=== PATIENT | female | born 1935 | race Caucasian/White ===

== ENCOUNTER 2018-10-15 13:48 | Observation (INO) ==
[2018-10-15 15:00] LABS: Basophils % 0.3 %; Eosinophils % 0.2 %; Hematocrit 37.2 % (35.3-44.9); Hemoglobin 12.1 g/dL (11.5-15.4); Lymphocytes # 0.8 K/mcL (0.6-4.6); Lymphocytes % 6.4 %; Mean Corpuscular HGB Conc 32.5 g/dL (31.6-35.5); Mean Corpuscular Hemoglobin 28.3 pg (28.0-33.3); Mean Corpuscular Volume 87.1 fL (83.0-100.0); Mean Platelet Volume 9.9 fL (9.4-12.4); Monocytes # 0.8 K/mcL (0.0-1.3); Monocytes % 6.7 %; Neutrophils # 10.3 K/mcL (1.6-8.9); Platelet Count 351 K/mcL (140-400); Red Blood Count 4.27 M/mcL (3.82-4.97); Red Cell Distribution Width 14.8 % (11.5-14.5); Segmented Neutrophils % 85.4 %; White Blood Count 12.1 K/mcL (4.3-11.1)
[2018-10-15 15:08] LABS: Prothrombin Time 23.1 Seconds (9.4-12.1)
[2018-10-15 15:10] LABS: Activated Partial Thrombo Time 39.4 Seconds (26.0-36.0)
[2018-10-15 15:21] LABS: Calcium 9.1 mg/dL (8.6-10.3); Potassium 4.4 mEq/L (3.5-5.1); Troponin I 0.03 ng/mL (< 0.04)
[2018-10-15] MEDS ORDERED: 0.9 % Sodium Chloride 1,000 ML IVC ONE (15:43)
--- NOTE | 2018-10-15 16:03 | Emergency Department Note ---
Disposition Clinical Impression: Acute kidney injury Atrial fibrillation Qualifiers: Atrial fibrillation type: paroxysmal Qualified Code(s): I48.0 - Paroxysmal atrial fibrillation Fatigue Qualifiers: Fatigue type: unspecified Qualified Code(s): R53.83 - Other fatigue Disposition: Admitted As Inpatient Condition: Fair Time of Disposition: 17:06 General Adult HPI - General Chief complaint: ED General Medical Stated complaint: afib Time Seen by Provider: 10/15/18 15:26 Source: patient Mode of arrival: ambulatory Limitations: no limitations Nursing Notes Reviewed: Yes Vital Signs Reviewed: Yes - History of Present Illness HPI Narrative: 83 yo female with past medical history of intermittent A. fib who recently underwent whatever for replacement of her aortic valve at [place] presents emergency department from her primary care doctor for recurrence of her atrial fibrillation. Patient has been hospitalized twice since discharge from the procedure last week for atrial fibrillation and is now taking metoprolol, Cardizem, and amiodarone with palpation. This morning she began feeling fatigued and went to her primary care physician's office who noticed that she had gone into atrial fibrillation again and was referred to the emergency room. She states that her installment loan collector, Dr. Stevenson, has talked about electrical card ioversion if she continues to go in and out of atrial fibrillation. Patient states that she feels lightheaded as though she is going to pass out when she goes into atrial fibrillation. She denies chest pain, palpitations, nausea and vomiting, diarrhea, dysuria. Pain Scale: 0 - Related Data Home Medications Medication Instructions Recorded Confirmed Alendronate Sodium [Fosamax] 70 mg PO TU 09/11/15 10/15/18 Aspirin Enteric Coated [Aspirin EC] 81 mg PO DAILY 09/11/15 10/15/18 Amiloride HCl 5 mg PO DAILY 07/06/18 10/15/18 Calcium Carb, Citrate/Vit D3 1 each PO DAILY 07/06/18 10/15/18 [Calcium + D3 ER Tablet] Amiodarone [Cordarone] 200 mg PO BID 10/15/18 10/15/18 Apixaban [Eliquis] 5 mg PO BID 10/15/18 10/15/18 Diltiazem HCl [Cardizem LA] 120 mg PO DAILY 10/15/18 10/15/18 Previous Rx's Medication Instructions Recorded Metoprolol XL (24 HR) Succ [Toprol 50 mg PO DAILY #30 tab.er.24h 10/16/18 Xl] Allergies Allergy/AdvReac Type Severity Reaction Status Date / Time No Known Allergies Allergy Verified 10/15/18 23:22 All systems ED: reviewed and negative except as stated. Review of Systems: As Per HPI Constitutional: Reports: weakness. Denies: fever, chills Eyes: Denies: vision change Cardiovascular: Reports: dyspnea on exertion. Denies: chest pain, palpitations, edema Respiratory: Reports: cough, dyspnea. Denies: wheezes Gastrointestinal: Denies: abdominal pain, nausea, vomiting, diarrhea Genitourinary: Denies: dysuria, hematuria Musculoskeletal: Denies: back pain Integumentary: Denies: rash Neurological: Denies: headache Endocrine: Reports: fatigue Past Medical History - Past Medical History Attestation: Yes The following information was validated with the patient. Source: patient Medical history: Reports: cancer, hypertension, other Surgical history: Reports: hip replacement Psychiatric history: Reports: no psych history - Social History Smoking Status: Former smoker Smokeless Tobacco Status: No Alcohol use: Reports: occasionally Drug use: Reports: none Physical Exam - General Limitations: no limitations General appearance: alert, in no apparent distress - Head Head exam: atraumatic, normocephalic - Eye Eye exam: Present: normal appearance, EOMI - ENT ENT exam: normal exam, normal oropharynx - Neck Neck exam: Present: normal inspection. Absent: tenderness, lymphadenopathy - Chest Chest inspection: Present: normal inspection. Absent: tenderness, rash - Respiratory Respiratory exam: Present: normal lung sounds bilaterally. Absent: wheezes - Cardiovascular Cardiovascular exam: Present: regular rate, irregular rhythm - Abdominal Exam Abdominal exam: Present: soft, Non-Tender. Absent: distention, guarding, rebound, rigidity - Extremities Exam Extremities exam: Present: normal inspection. Absent: tenderness, pedal edema - Neurological Exam Neurological exam: Present: alert, oriented X3 - Psychiatric Psychiatric exam: Present: normal affect, normal mood - Skin Skin exam: Present: warm, dry, intact Course Vital Signs Temperature 97.5 F L 10/15/18 13:51 Pulse Rate 86 10/15/18 13:51 Respiratory Rate 18 10/15/18 13:51 Blood Pressure 144/76 10/15/18 13:51 O2 Sat by Pulse Oximetry 97 10/15/18 13:51 Temperature 97.5 F L 10/15/18 16:30 Pulse Rate 73 10/15/18 16:51 Respiratory Rate 18 10/15/18 16:51 Blood Pressure 151/80 10/15/18 16:51 O2 Sat by Pulse Oximetry 98 10/15/18 16:51 Oxygen Delivery Oxygen Delivery Room Air Medical Decision Making - MDM Narrative Medical decision making narrative: Patient presents with complaint of recurrence of her atrial fibrillation. Basic lab work and EKG done from triage show atrial fibrillation with RVR and mild dehydration. Chest x-ray is still pending. Patient will be given 1 L normal saline bolus as her last echocardiogram done in May shows an ejection fraction of 60% as well as a Cardizem bolus. We will consult with cardiology to determine further plan. 1600 - spoke with Dr. Coronado who states that this patient should be admitted to [facility] hospitalist team and cardiology will further evaluate her to see if she needs rate control or rhythm control to help with her symptomatically atrial fibrillation. 1700 - pt has been accepted to the hospital. She is now normal sinus rhythm without the administration of the Cardizem. - Medical Records Medical records reviewed: Yes I reviewed the patient's medical records. - Lab Data Lab results reviewed: Yes I reviewed the patient's lab results. Result diagrams: 10/16/18 02:29 10/16/18 02:29 Lab Results 10/15/18 10/15/18 10/15/18 Range/Units 14:41 14:41 14:41 WBC 12.1 H (4.3-11.1) K/mcL RBC 4.27 (3.82-4.97) M/mcL Hgb 12.1 (11.5-15.4) g/dL Hct 37.2 (35.3-44.9) % MCV 87.1 (83.0-100.0) fL MCH 28.3 (28.0-33.3) pg MCHC 32.5 (31.6-35.5) g/dL RDW 14.8 H (11.5-14.5) % Plt Count 351 (140-400) K/mcL MPV 9.9 (9.4-12.4) fL Immature Gran % 1.0 (0-4) % Seg Neutrophils % 85.4 % Lymphocytes % 6.4 % Monocytes % 6.7 % Eosinophils % 0.2 % Basophils % 0.3 % Neutrophils # 10.3 H (1.6-8.9) K/mcL Lymphocytes # 0.8 (0.6-4.6) K/mcL Monocytes # 0.8 (0.0-1.3) K/mcL Eosinophils # 0.0 (0.0-0.6) K/mcL Basophils # 0.0 (0.0-0.2) K/mcL PT 23.1 H (9.4-12.1) Seconds INR 2.0 APTT 39.4 H (26.0-36.0) Seconds Sodium 135 L (136-145) mEq/L Potassium 4.4 (3.5-5.1) mEq/L Chloride 99 (98-107) mEq/L Carbon Dioxide 25 (23-29) mEq/L BUN 30 H (8-23) mg/dL Creatinine 1.24 H (0.60-1.20) mg/dL Est GFR ( Amer) 50 L (> 60) Est GFR (Non-Af Amer) 41 L (> 60) BUN/Creatinine Ratio 24 (6-26) Glucose 136 H (70-105) mg/dL Calculated Osmolality 288 (280-300) Calcium 9.1 (8.6-10.3) mg/dL Troponin I 0.03 (< 0.04) ng/mL - Radiology Data Radiology results reviewed: Yes I reviewed the patient's radiology results. - EKG Data EKG #1 EKG attestation: Yes I reviewed and interpreted this EKG. EKG results narrative: EKG obtained at 16:47 on 10/15/2018 Normal sinus rhythm at [address] segment elevations or depressions. No other T-wave abnormalities. EKG #2 EKG attestation: Yes I reviewed and interpreted this EKG. EKG results narrative: EKG obtained at 16:47 on 10/15/2018 Normal sinus rhythm at [address] segment elevations or depressions. No other T-wave abnormalities. Attestation Statement - Attestation Attestation: I have seen this patient with the resident physician, I have personally evaluated this patient. I had reviewed the chart and document dictation by the resident physician and aM in agreement with the information documented by the resident physician. Please see documentation by the resident physician for complete chart including past medical history, family medical history, review of systems, current history and physical and laboratory and imaging studies. I was present for all procedures, provided direct supervision for all procedures, was present for the entirety of all procedures and provided direct guidance during the procedures. Please see documentation by the resident physician for any procedures performed. I have reviewed all interpretations of EKGs, and reviewed all EKGs performed on patient's as well. I have also reviewed reports of imaging as provided by radiology.
--- NOTE | 2018-10-15 16:20 | Emergency Department Note ---
Disposition Clinical Impression: Atrial fibrillation, Fatigue Disposition: Still a Patient Condition: Fair Referrals: Linh Diaz MD [Primary Care Provider] - Forms: ED Satisfaction Letter, Work/School Release Time of Disposition: 16:24 General Adult HPI - General Chief complaint: ED General Medical Stated complaint: afib Time Seen by Provider: 10/15/18 15:26 Source: patient Mode of arrival: ambulatory Limitations: no limitations Nursing Notes Reviewed: Yes Vital Signs Reviewed: Yes - History of Present Illness Pain Scale: 0 - Related Data Home Medications Medication Instructions Recorded Confirmed Alendronate Sodium [Fosamax] 70 mg PO QMONTH 09/11/15 07/06/18 Aspirin Enteric Coated [Aspirin EC] 81 mg PO DAILY 09/11/15 07/06/18 Biotin 10 mg PO DAILY 09/11/15 07/06/18 Amiloride HCl 5 mg PO DAILY 07/06/18 07/06/18 Calcium Carb, Citrate/Vit D3 1 each PO DAILY 07/06/18 07/06/18 [Calcium + D3 ER Tablet] hydroCHLOROthiazide 50 mg PO DAILY 07/06/18 07/06/18 [Hydrochlorothiazide] Allergies Allergy/AdvReac Type Severity Reaction Status Date / Time No Known Allergies Allergy Verified 10/15/18 13:50 Constitutional: Reports: weakness. Denies: fever, chills Eyes: Denies: vision change Cardiovascular: Reports: dyspnea on exertion. Denies: chest pain, palpitations, edema Respiratory: Reports: cough, dyspnea. Denies: wheezes Gastrointestinal: Denies: abdominal pain, nausea, vomiting, diarrhea Genitourinary: Denies: dysuria, hematuria Musculoskeletal: Denies: back pain Integumentary: Denies: rash Neurological: Denies: headache Endocrine: Reports: fatigue Past Medical History - Past Medical History Medical history: Reports: cancer, hypertension, other Surgical history: Reports: hip replacement Psychiatric history: Reports: no psych history - Social History Smoking Status: Former smoker Smokeless Tobacco Status: No Alcohol use: Reports: occasionally Drug use: Reports: none Physical Exam - General Limitations: no limitations General appearance: alert, in no apparent distress Course Vital Signs Temperature 97.5 F L 10/15/18 13:51 Pulse Rate 86 10/15/18 13:51 Respiratory Rate 18 10/15/18 13:51 Blood Pressure 144/76 10/15/18 13:51 O2 Sat by Pulse Oximetry 97 10/15/18 13:51 Temperature 97.5 F L 10/15/18 13:51 Pulse Rate 86 10/15/18 13:51 Respiratory Rate 18 10/15/18 13:51 Blood Pressure 144/76 10/15/18 13:51 O2 Sat by Pulse Oximetry 97 10/15/18 13:51 Oxygen Delivery Oxygen Delivery Room Air Medical Decision Making - Lab Data Result diagrams: 10/15/18 14:41 10/15/18 14:41 Lab Results 10/15/18 10/15/18 10/15/18 Range/Units 14:41 14:41 14:41 WBC 12.1 H (4.3-11.1) K/mcL RBC 4.27 (3.82-4.97) M/mcL Hgb 12.1 (11.5-15.4) g/dL Hct 37.2 (35.3-44.9) % MCV 87.1 (83.0-100.0) fL MCH 28.3 (28.0-33.3) pg MCHC 32.5 (31.6-35.5) g/dL RDW 14.8 H (11.5-14.5) % Plt Count 351 (140-400) K/mcL MPV 9.9 (9.4-12.4) fL Immature Gran % 1.0 (0-4) % Seg Neutrophils % 85.4 % Lymphocytes % 6.4 % Monocytes % 6.7 % Eosinophils % 0.2 % Basophils % 0.3 % Neutrophils # 10.3 H (1.6-8.9) K/mcL Lymphocytes # 0.8 (0.6-4.6) K/mcL Monocytes # 0.8 (0.0-1.3) K/mcL Eosinophils # 0.0 (0.0-0.6) K/mcL Basophils # 0.0 (0.0-0.2) K/mcL PT 23.1 H (9.4-12.1) Seconds INR 2.0 APTT 39.4 H (26.0-36.0) Seconds Sodium 135 L (136-145) mEq/L Potassium 4.4 (3.5-5.1) mEq/L Chloride 99 (98-107) mEq/L Carbon Dioxide 25 (23-29) mEq/L BUN 30 H (8-23) mg/dL Creatinine 1.24 H (0.60-1.20) mg/dL Est GFR ( Amer) 50 L (> 60) Est GFR (Non-Af Amer) 41 L (> 60) BUN/Creatinine Ratio 24 (6-26) Glucose 136 H (70-105) mg/dL Calculated Osmolality 288 (280-300) Calcium 9.1 (8.6-10.3) mg/dL Troponin I 0.03 (< 0.04) ng/mL Attestation Statement - Attestation Attestation: I have seen this patient with the resident physician, I have personally evaluated this patient. I had reviewed the chart and document dictation by the resident physician and aM in agreement with the information documented by the resident physician. Please see documentation by the resident physician for complete chart including past medical history, family medical history, review of systems, current history and physical and laboratory and imaging studies. I was present for all procedures, provided direct supervision for all procedures, was present for the entirety of all procedures and provided direct guidance during the procedures. Please see documentation by the resident physician for any procedures performed. I have reviewed all interpretations of EKGs, and reviewed all EKGs performed on patient's as well. I have also reviewed reports of imaging as provided by radiology. Patient was sent in by her primary care and her skip load driver for management of atrial fibrillation. She has had problems with atrial fibrillation, and has been in and out of the hospital ever since having her aortic valve replaced, she is currently on Eliquis, she is unsure if she has a artificial valve or a tissue valve. she states that she did have some complications after her initial procedure, she developed a pericardial effusion related to a injured vessel, and required pericardiocentesis. She does not feel short of breath but does have this exertional fatigue and lack of energy. They have tried her on several different medications including a beta jacob, diltiazem, and amiodarone, she is currently on diltiazem and amiodarone for A. fib, she has been chemically cardioverted twice, but not required electrical cardioversion. We contacted her skip load driver who referred her to the ER, who would like her to be admitted to medicine, for likely cardioversion. Basic laboratory studies revealed mildly increased creatinine of 1.24 up from 0.8, she was given a liter of IV fluids, she did have an echocardiogram within the last couple of months that showed a normal ejection fraction of 50-60% she also had a cardiac catheterization performed 4 months ago that showed 30% vascular stenosis in one vessel all other vessels were within acceptable limits, including aortic runoff. Patient laboratory studies revealed no evidence of acute myocardial infarction, no other acute abnormality. If the patient's heart rate increases we will consider diltiazem, her heart rate on her EKG was 103, however my examination was in the 70s, EKG was atrial fibrillation, again heart rate of 103, no evidence of acute ST elevation or ST depression or significant T-wave inversion, nonspecific T-wave flattening and biphasic appearance laterally, without significant acute change from prior. Patient was admitted to the hospital for further evaluation and management. Chest x-ray as interpreted by radiology showed cardiomegaly, small pleural effusion, slightly improved from previous.
[2018-10-15] MEDS ORDERED: Naloxone 0.4 MG/ML INJ IVP PRN (17:08)
[2018-10-15] MEDS ORDERED: Ondansetron 4 MG/2 ML VIAL IVP PRN (17:08)
[2018-10-15] MEDS ORDERED: Ringers Solution, Lactated 1,000 ML IVC SCH (17:15)
--- NOTE | 2018-10-15 17:31 | Internal Med History&Physical ---
Date of Encounter: 10/15/18 Time of Encounter: 17:10 Internal Medicine - H&P: HPI Chief complaint: afib Admitted From: Home History of present illness: Ms. Hutchinson is a 83 year old female with history of recent TAVR on 10/02, new onset afib on Apixaban, HTN, ex-tobacco use, who presented from the PCP office due to recurrence of atrial fibrillation. Patient states that she went to her PCP office for routine visit when her doctor found out that she was hypotensive and was in atrial fibrillation with RVR hence sent the pt to the ED for further ev aluation. Other than feeling fatigued for the last 2 days, patient denies any chest pain, palpitation, orthopnea, PND, or leg swelling. No shortness of breath, cough, sputum production, fever/chills, nausea/vomiting, or sick contacts. Denies any GI/ symptoms. Does admit to poor oral intake due to feeling tired for the last 2 days. In the ED, she was afebrile, tachycardic at 103, but otherwise hemodynamically stable. Saturating 97% on room air. EKG showed atrial fibrillation with ventricular rate of 103 without STT changes concerning for ischemia. Labwork showed leukocytosis of 12.1, INR of 2, and creatinine of 1.24 (baseline 0.8-9). Troponin was normal. Chest x-ray did not show any acute cardiopulmonary process. She was given 1 L of IV fluid as a bolus and was about to be given 20 mg of Cardizem but spontaneously converted to NSR while IVF was running. Patient will be admitted for further management with cardiology consultation. Past Med Surg Social Fam HX - Past Medical History Medical history: atrial fibrillation, cancer, hypertension, other Additional medical history: skin CA, s/p TAVR 10/02/18 Psychiatric history: no psych history - Past Surgical History Surgical History: hip replacement Additional surgical history: VEIN STRIPPING. MOHS. COLONOSCOPY. HEMORRHOIDECTOMY X2. SKIN LESION REMOVAL - Social History Smoking Status: Former smoker Smokeless Tobacco Status: No Alcohol use: occasionally Drug use: none - Additional Family History Additional family history: No Family history of premature CAD Internal Medicine - H&P: Meds Alendronate Sodium [Fosamax] 70 mg PO QMONTH 09/11/15 [History] Aspirin Enteric Coated [Aspirin EC] 81 mg PO DAILY 09/11/15 [History] Biotin 10 mg PO DAILY 09/11/15 [History] Amiloride HCl 5 mg PO DAILY 07/06/18 [History] Calcium Carb, Citrate/Vit D3 [Calcium + D3 ER Tablet] 1 each PO DAILY 07/06/18 [History] hydroCHLOROthiazide [Hydrochlorothiazide] 50 mg PO DAILY 07/06/18 [History] Allergy/AdvReac Type Severity Reaction Status Date / Time No Known Allergies Allergy Verified 10/15/18 13:50 All Systems PM: A 10-system review of systems was performed and is negative for pertinent find ings except as documented above in the HPI. - Constitutional Vitals: Temp Pulse Resp BP Pulse Ox 97.5 F L 73 18 151/80 98 10/15/18 16:30 10/15/18 16:51 10/15/18 16:51 10/15/18 16:51 10/15/18 16:51 Exam: General: Alert and oriented, not in acute distress. HEENT:EOMI, pupils equal, round and reactive. Cardiovascular:Normal S1 & S2, No JVD. Pulse regular. Lungs: clear to auscultation, no wheezes/rales Abdomen:Soft, non-tender, no rigidity. Extremities:No deformity or swelling Neurological:Normal cognition and motor skills. Non-focal Skin:Normal color, no rash, no lesions. Pulses:Carotid and radial pulses normal +2. Rest of the physical exam is non contributory Internal Med - H&P Results - Labs CBC & Chem 7: 10/15/18 14:41 10/15/18 14:41 Labs: Short CBC 10/15/18 Range/Units 14:41 WBC 12.1 H (4.3-11.1) K/mcL Hgb 12.1 (11.5-15.4) g/dL Hct 37.2 (35.3-44.9) % Plt Count 351 (140-400) K/mcL Neutrophils # 10.3 H (1.6-8.9) K/mcL BMP 10/15/18 14:41 Sodium 135 L Potassium 4.4 Chloride 99 Carbon Dioxide 25 BUN 30 H Creatinine 1.24 H Glucose 136 H Calcium 9.1 Cardiac Enzymes 10/15/18 Range/Units 14:41 Troponin I 0.03 (< 0.04) ng/mL - Impressions ITS Impressions Chest X-Ray 10/15/18 14:06 IMPRESSION: Cardiomegaly and small pleural effusions bilaterally. Hyperinflation compatible with COPD. D/ / Hussein Hooper MD / Hussein Hooper MD Interpreting Provider: Hussein Hooper MD - Assessment and Plan (1) Atrial fibrillation Current Visit: Yes Status: Acute Assessment and plan: presented from the PCP office due to concern for hypotension and afib with RVR upon arrival to the ED, her HR was 103, in atrial fibrillation, but quickly converted to NSR on IVF appears to be triggered by hypovolemia given her mild MARIA ESTHER. Aggravated by HCTZ/amiloride use 1st troponin -ve, trend Resume home meds including amiodarone, Cardizem, and Toprol XL AC with apixaban cardiology consulted in the ED Qualifiers: Atrial fibrillation type: paroxysmal Qualified Code(s): I48.0 - Paroxysmal atrial fibrillation (2) Acute kidney injury Current Visit: Yes Status: Acute Assessment and plan: appears to be aggravated by ongoing use of HCTZ and amiloride IVF, hold off on HCTZ/amiloride for now (3) HTN (hypertension) Current Visit: Yes Status: Chronic Assessment and plan: hold off on HCTZ/amiloride as above Qualifiers: Hypertension type: unspecified Qualified Code(s): I10 - Essential (primary) hypertension (4) Tobacco abuse Current Visit: Yes Status: Chronic Assessment and plan: Chest x-ray showed hyperinflation which could be consistent with COPD outpatient PFT PRN duoneb (5) DVT prophylaxis Current Visit: Yes Status: Acute Assessment and plan: on apixaban - Time Spent With Patient Total time spent is greater than 50% in coordination of care (as documented) at patient's floor/unit and/or counseling patient: 25 - 35 minutes
[2018-10-15] MEDS ORDERED: Ipratropium/Albuterol Neb 3 ML IH PRN (17:37)
[2018-10-15] MEDS: Apixaban 5 MG TABLET PO SCH (20:57)
[2018-10-15] MEDS: *HR* Amiodarone 200 MG TABLET PO SCH (20:57)
[2018-10-16 02:57] LABS: Basophils % 0.5 %; Eosinophils # 0.1 K/mcL (0.0-0.6); Eosinophils % 1.2 %; Hematocrit 32.1 % (35.3-44.9); Immature Granulocytes % 1.2 % (0-4); Lymphocytes # 0.9 K/mcL (0.6-4.6); Lymphocytes % 11.9 %; Mean Corpuscular HGB Conc 32.7 g/dL (31.6-35.5); Mean Corpuscular Hemoglobin 28.4 pg (28.0-33.3); Mean Corpuscular Volume 86.8 fL (83.0-100.0); Mean Platelet Volume 9.9 fL (9.4-12.4); Monocytes # 0.9 K/mcL (0.0-1.3); Monocytes % 11.3 %; Neutrophils # 5.5 K/mcL (1.6-8.9); Platelet Count 217 K/mcL (140-400); Red Cell Distribution Width 14.7 % (11.5-14.5); Segmented Neutrophils % 73.9 %; White Blood Count 7.5 K/mcL (4.3-11.1)
[2018-10-16 02:58] LABS: Hemoglobin 10.5 g/dL (11.5-15.4)
[2018-10-16 03:14] LABS: BUN/Creatinine Ratio 26 (6-26); Blood Urea Nitrogen 26 mg/dL (8-23); Calcium 8.3 mg/dL (8.6-10.3); Carbon Dioxide 26 mEq/L (23-29); Chloride 103 mEq/L (98-107); Glucose 105 mg/dL (70-105); Osmolality,Calculated 287 (280-300); Potassium 3.7 mEq/L (3.5-5.1); Sodium 136 mEq/L (136-145); eGFR For African Americans > 60 (> 60); eGFR For Non-African Americans 52 (> 60)
[2018-10-16 07:09] VITALS: BP 149/82
[2018-10-16] MEDS ORDERED: Diltiazem CD (24hr) 120 MG CAPSULE PO SCH (09:00)
[2018-10-16] MEDS ORDERED: Metoprolol XL (24 HR) Succ 25 MG TAB.ER.24H PO SCH (09:00)
[2018-10-16] MEDS ORDERED: Aspirin Enteric Coated 81 MG Tablet PO SCH (09:00)
[2018-10-16] MEDS ORDERED: Metoprolol XL (24 HR) Succ 50 MG TAB.ER.24H PO SCH (09:00)
[2018-10-16] MEDS: Apixaban 5 MG TABLET PO SCH (09:42)
[2018-10-16] MEDS: *HR* Amiodarone 200 MG TABLET PO SCH (09:42)
--- NOTE | 2018-10-16 09:43 | Discharge Summary ---
- NOTES TO OUTPATIENT PROVIDER Notes to Outpatient Provider: Follow up with PCP and Cardiology as outpatient. HCTZ d/jammie and Toprol uptitrated to 50mg QD Date of Encounter: 10/16/18 Time of Encounter: 08:30 - Discharge Diagnosis (1) Atrial fibrillation Priority: Primary Status: Acute Qualifiers: Atrial fibrillation type: paroxysmal Qualified Code(s): I48.0 - Paroxysmal atrial fibrillation (2) Acute kidney injury Priority: Secondary Status: Acute (3) HTN (hypertension) Priority: Secondary Status: Chronic Qualifiers: Hypertension type: unspecified Qualified Code(s): I10 - Essential (primary) hypertension (4) Tobacco abuse Priority: Secondary Status: Chronic (5) DVT prophylaxis Priority: Secondary Status: Acute Hospital course: Ms. 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 Converted to NSR in the ED after IVF. Cr was elevated at 1.24 (baseline 0.8-0.9) which downtrending with IVF. HCTZ was d/jammie and Toprol XL was uptitrated to 50mg QD. She will need to follow up with PCP and Cardiology as outpatient. 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 consultant - Time Spent with Patient Total time spent providing and/or coordinating discharge services: 28 mins - Discharge Medications Prescriptions: New Metoprolol XL (24 HR) Succ [Toprol Xl] 50 mg PO DAILY #30 tab.er.24h Continued Aspirin Enteric Coated [Aspirin EC] 81 mg PO DAILY Alendronate Sodium [Fosamax] 70 mg PO TU Amiloride HCl 5 mg PO DAILY Calcium Carb, Citrate/Vit D3 [Calcium + D3 ER Tablet] 1 each PO DAILY Amiodarone [Cordarone] 200 mg PO BID Diltiazem HCl [Cardizem LA] 120 mg PO DAILY Apixaban [Eliquis] 5 mg PO BID Discontinued Metoprolol Succinate [Toprol Xl] 25 mg PO DAILY Home Medications: Alendronate Sodium [Fosamax] 70 mg PO TU 09/11/15 [History] Aspirin Enteric Coated [Aspirin EC] 81 mg PO DAILY 09/11/15 [History] Amiloride HCl 5 mg PO DAILY 07/06/18 [History] Calcium Carb, Citrate/Vit D3 [Calcium + D3 ER Tablet] 1 each PO DAILY 07/06/18 [History] Amiodarone [Cordarone] 200 mg PO BID 10/15/18 [History] Apixaban [Eliquis] 5 mg PO BID 10/15/18 [History] Diltiazem HCl [Cardizem LA] 120 mg PO DAILY 10/15/18 [History] Metoprolol XL (24 HR) Succ [Toprol Xl] 50 mg PO DAILY #30 tab.er.24h 10/16/18 [Rx] Allergies/Adverse Reactions: Allergy/AdvReac Type Severity Reaction Status Date / Time No Known Allergies Allergy Verified 10/15/18 23:22 Date of admission: 10/15/18 17:12 Primary care physician: Linh Diaz MD - Constitutional Vitals: Temp Pulse Resp BP Pulse Ox 97.9 F 76 18 149/82 97 10/16/18 07:08 10/16/18 07:08 10/16/18 07:08 10/16/18 07:08 10/16/18 07:08 Exam: General: Alert and oriented, not in acute distress. Cardiovascular:Normal S1 & S2, No JVD. Pulse regular. Lungs: clear to auscultation, no wheezes/rales Abdomen:Soft, non-tender, no rigidity. Extremities:No deformity or swelling Neurological:Normal cognition and motor skills. Non-focal - Patient Status Disposition: Home, Self-Care Condition: Fair Functional capacity at discharge: independent ambulation Overall status at discharge: patient is progressing back to baseline - Discharge Instructions Instructions: Atrial Fibrillation (DC), Chronic Hypertension (DC) Follow Up With: Linh Diaz MD [Primary Care Provider] - 10/24/18 11:45 am Garima Coronado MD [Non-Partnered Physician] - - Diet and Activity Activity: resume usual activities as tolerated Diet: low salt diet
--- NOTE | 2018-10-17 12:50 | Electrocardiograph Report ---
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
--- NOTE | 2018-10-18 15:43 | Electrocardiograph Report ---
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
== END 2018-10-16 10:43 | disposition home or self-care (01) ==
LOC: EMEROOARM 13:48 → 3BNU 13:48
PROVIDERS: ADMIT Internal Medicine Nephrology; ATTEND Internal Medicine Nephrology

== ENCOUNTER 2019-01-15 06:35 | Inpatient (IN) ==
[2019-01-15 08:19] LABS: INR 1.1
--- NOTE | 2019-01-15 09:14 | History & Physical Report ---
Date of Encounter: 01/15/19 Time of Encounter: 07:45 24 Hour HP Update - Instructions Instructions: If the History and Physical is less than 30 days old and was completed prior to A.M. admission and or procedure and has NOT been updated on calendar day of procedure please complete this update prior to performing procedure. - Update Patient reports changes in Medical Condition: No Changes in examination, assessment, or condition: No Changes in Medication: No Preop tests/diagnostics Reviewed: No Pre-Op MRSA Screen: Negative Surgery Remains Indicated: Yes Consent for Planned Operative Procedure(s) Verified: Yes - Pre-Operative Checklist Preoperative Checklist Indicated: Yes Prophylactic Antibiotic Ordered: No Home Medications Include Beta Jaron: Yes Beta Jaron Taken Today (Day of Surgery): Yes Beta Jaron Taken Yesterday (Day Prior to Surgery): Yes Is VTE Prophylaxis Indicated?: NO
--- NOTE | 2019-01-15 12:01 | Internal Med History&Physical ---
Date of Encounter: 01/15/19 Time of Encounter: 11:57 Internal Medicine - H&P: HPI Chief complaint: mild shorntess of breath Admitted From: Home Plans for Post Hospital Care: Home History of present illness: Ms. Hutchinson is a 83 year old female past medical history of A. fib, aortic stenosis status post however, hypertension who was admitted few months ago due to pericardial effusion and transferred to [place] for further treatment was recently being treated for pneumonia and was found to have pleural effusion. Patient was seen by pulmonology as outpatient. Patient was on amoxicillin for 10 days which currently she is continuing. She denies any fevers chills nausea vomiting diarrhea. She has mild shortness of breath and was found to have pleural effusion. Patient had attempted thoracentesis done today for diagnostic purposes due to complain of shortness of breath. Fluid could not be obtained during the tap today. However there was post procedure complication of small pneumothorax. Given her previous complications patient would be admitted for close observation and serial chest x-rays. Patient denies any difficulty breathing, chest pain, nausea vomiting or diarrhea. Past Med Surg Social Fam HX - Past Medical History Medical history: hypertension, valvular heart disease Additional medical history: afib c aortic valve replacement 10/02/18 Psychiatric history: no psych history - Past Surgical History Surgical History: heart valve replacement, hip replacement Additional surgical history: VEIN STRIPPING. HEMORRHOIDECTOMY X2. SKIN LESION REMOVAL. Tubal ligations. Right hip replacement. aortic heart valve - Social History Smoking Status: Former smoker Smokeless Tobacco Status: No Alcohol use: rarely Drug use: none - Family History Father Living Status: Hx Family Cardiac Disorders: Yes (HTN) Hx Family Respiratory Disorders: No Hx Family Cancer: No Hx Family GI Disorders: No Hx Family Endocrine Disorder: No Hx Family Neuromuscular Disorders: No Hx Family Neurologic Disorders: No Hx Family HEENT Disorders: No Hx Family Autoimmune Disorders: No Brother Living Status: Hx Family Cardiac Disorders: Yes (Aortic aneurysm) Hx Family Respiratory Disorders: No Hx Family Cancer: No Hx Family GI Disorders: No Hx Family Endocrine Disorder: No Hx Family Neuromuscular Disorders: No Hx Family Neurologic Disorders: No Hx Family HEENT Disorders: No Hx Family Autoimmune Disorders: No Internal Medicine - H&P: Meds Aspirin Enteric Coated [Aspirin EC] 81 mg PO QAM 09/11/15 [History] Amiodarone [Cordarone] 200 mg PO BID 10/15/18 [History] Diltiazem HCl [Cardizem LA] 120 mg PO QAM 10/15/18 [History] Metoprolol XL (24 HR) Succ [Toprol Xl] 50 mg PO DAILY #30 tab.er.24h 10/16/18 [Rx] Benzonatate [Tessalon] 100 mg PO TID PRN 10/27/18 [History] aMILoride [Midamor] 5 mg PO QAM 10/27/18 [History] L.acidoph,Paracasei, B.lactis [Probiotic] 1 cap PO QAM 10/28/18 [History] Allergy/AdvReac Type Severity Reaction Status Date / Time No Known Allergies Allergy Verified 10/28/18 17:09 All Systems PM: A 10-system review of systems was performed and is negative for pertinent findings except as documented above in the HPI. - Constitutional Vitals: Temp Pulse Resp BP Pulse Ox 98.0 F 65 16 196/81 97 01/15/19 11:46 01/15/19 11:46 01/15/19 11:46 01/15/19 11:46 01/15/19 11:46 Exam: Constitutional: Vitals as noted. Conversant. No Apparent Distress. Eyes : Sclera white, conjunctiva clear, no lid lag, PEARLA. ENT : Grossly normal hearing. No JVD, no cervical lymphadenopathy. no thyromeg syed or mass. Respiratory : Clear to auscultation bilaterally. No accessory muscle use, rales, rhonchi or wheezes, 8 cm size subcutaneous emphysema around procedure site. Cardiovascular : RRR, +S1, +S2. no murmur, gallop, rubs. No chest wall tenderness GI/Abdominal : Soft, Non-tender, Non-distended, normal bowel sounds, no peritoneal signs. no orgenomegaly or mass appreciated. no hernia. Musculoskeletal: no deformity noted. 1+ edema b/l, warm extremities, pulses palpable and symmetrical in UE/LE. Neurological: AO X3, CN II-XII grossly intact, grossly normal motor and sensory exam. Skin: b/l LE dermatitis changes Pych: poor memory. AOx3. Internal Med - H&P Results - Impressions ITS Impressions Chest X-Ray 01/15/19 09:23 IMPRESSION: Left pleural effusion with left basilar atelectasis, stable. Small left apical pneumothorax new since the prior. No evidence of tension. D/ / 01/15/2019 10:12:02 Eddy Chavez MD / bcarter Interpreting Provider: Eddy Chavez MD - Assessment and Plan (1) Pneumothorax Current Visit: Yes Status: Acute Assessment and plan: Patient with postprocedure pneumothorax. Mild subcutaneous emphysema around surgical site. We will obtain serial chest x-rays. Keep patient on supplemental oxygen Pulmonology consulted. Qualifiers: Pneumothorax type: postprocedural Qualified Code(s): J95.811 - Postprocedural pneumothorax (2) Pneumonia Current Visit: Yes Status: Acute Assessment and plan: Patient was on amoxicillin at home. We will resume once home dose confirmed. Qualifiers: Pneumonia type: due to unspecified organism Laterality: unspecified laterality Lung location: unspecified part of lung Qualified Code(s): J18.9 - Pneumonia, unspecified organism (3) Atrial fibrillation Current Visit: No Status: Acute Assessment and plan: patient's heart rate is controlled Patient's home liquids held for the procedure We will continue to hold for now. Confirmed other home medications dosing. Patient on anti-rhythmics. We will resume once confronted. Qualifiers: Atrial fibrillation type: paroxysmal Qualified Code(s): I48.0 - Paroxysmal atrial fibrillation (4) HTN (hypertension) Current Visit: No Status: Chronic Qualifiers: Hypertension type: essential hypertension Qualified Code(s): I10 - Essential (primary) hypertension - Time Spent With Patient Total time spent is greater than 50% in coordination of care (as documented) at patient's floor/unit and/or counseling patient:
[2019-01-15] MEDS ORDERED: Benzonatate 100 MG CAPSULE PO PRN (13:15)
--- NOTE | 2019-01-15 17:11 | Pulmonology Consult Note ---
Date of Encounter: 01/15/19 Time of Encounter: 15:00 Assessment and Plan (1) Pneumothorax on left Current Visit: Yes Status: Acute Patient had a left-sided thoracentesis to complicated pleural anatomy patient had a small tiny apical pneumothorax is less than 2 cm will do conservative management with oxygen repeat chest x-ray stable we will do a chest x-ray in the morning educated the patient if she gets shortness of breath as shehas symptoms of tension pneumothorax and she had recently 2 months ago when she had the valve surgery. Will get a chest x-ray print designer spoke with the registered nurse if she gets some shortness of breath to call the surgical on-site team for evaluation for possible chest tube placement. This is low likelihood is the pneumothorax is stable and small (2) Pleural effusion Current Visit: Yes Status: Acute Patient has left-sided pleural effusion with complicated anatomy because patient had extensive chest tube placement after aortic valve surgery which happened 2 months ago. This pleural effusion the past thoracentesis shows transudative . Will encourage conservative management in the future. There is needed or any thoracentesis in the future patient should be consulted to interventional radiology. (3) CHF (congestive heart failure) Current Visit: Yes Status: Acute Patient has chronic diastolic heart failure when patient is stable she can resume Lasix and get discharged. Qualifiers: Heart failure type: diastolic Heart failure chronicity: chronic Qualified Code(s): I50.32 - Chronic diastolic (congestive) heart failure History of Present Illness Consult date: 01/15/19 Requesting physician: Zay Khan Reason for consult: pleural effusion, pneumothorax Chief complaint: Pneumothorax after thoracentesis History of present illness: 83-year-old female with past medical history significant for diastolic heart failure, supported by pacemaker, atrial fibrillation on Eliquis has bilateral effusion small right and left sided moderate pleural effusion was seen by me in the office and arrange for outpatient thoracentesis today patient stopped her Eliquis 48 hours ago and ultrasound scanning of the chest and adequate safe pocket was marked attempted the thoracentesis and the marked site it was a dry tap then she was rescanned with ultrasound again the spot which I marked did not have fluid at this point looks like when she sat down and gravity aided today with a fluid to a different pocket. The procedure was abandoned postprocedure chest x-ray showed tiny small pneumothorax patient was admitted for observation. Patient denies any chest pain chest tightness denies any dyspnea denies any cough or sputum production patient denies any fever or chills denies any other constitutional symptoms. Past Med Surg Social Fam HX - Past Medical History Medical history: hypertension, valvular heart disease Additional medical history: afib c aortic valve replacement 10/02/18 Psychiatric history: no psych history - Past Surgical History Surgical History: heart valve replacement, hip replacement Additional surgical history: VEIN STRIPPING. HEMORRHOIDECTOMY X2. SKIN LESION REMOVAL. Tubal ligations. Right hip replacement. aortic heart valve - Social History Smoking Status: Former smoker Smokeless Tobacco Status: No Alcohol use: rarely Drug use: none - Family History Father Living Status: Hx Family Cardiac Disorders: Yes (HTN) Hx Family Respiratory Disorders: No Hx Family Cancer: No Hx Family GI Disorders: No Hx Family Endocrine Disorder: No Hx Family Neuromuscular Disorders: No Hx Family Neurologic Disorders: No Hx Family HEENT Disorders: No Hx Family Autoimmune Disorders: No Brother Living Status: Hx Family Cardiac Disorders: Yes (Aortic aneurysm) Hx Family Respiratory Disorders: No Hx Family Cancer: No Hx Family GI Disorders: No Hx Family Endocrine Disorder: No Hx Family Neuromuscular Disorders: No Hx Family Neurologic Disorders: No Hx Family HEENT Disorders: No Hx Family Autoimmune Disorders: No Medications and Allergies Aspirin Enteric Coated [Aspirin EC] 81 mg PO QAM 09/11/15 [History] Amiodarone [Cordarone] 200 mg PO BID 10/15/18 [History] Diltiazem HCl [Cardizem LA] 120 mg PO QAM 10/15/18 [History] Metoprolol XL (24 HR) Succ [Toprol Xl] 50 mg PO DAILY #30 tab.er.24h 10/16/18 [Rx] Benzonatate [Tessalon] 100 mg PO TID PRN 10/27/18 [History] aMILoride [Midamor] 5 mg PO QAM 10/27/18 [History] L.acidoph,Paracasei, B.lactis [Probiotic] 1 cap PO QAM 10/28/18 [History] Amoxicillin/Clavulanate [Augmentin] 875 mg PO BIDWM 01/15/19 [History] Apixaban [Eliquis] 2.5 mg PO 1-2XD 01/15/19 [History] Allergy/AdvReac Type Severity Reaction Status Date / Time No Known Allergies Allergy Verified 10/28/18 17:09 All Systems: The remainder of the systems were reviewed and are negative Physical Examination Vital Signs: Vital Signs, Last 4 Hours Temp Pulse Resp BP Pulse Ox 01/15/19 15:38 97.6 F 67 16 146/64 99 General appearance: no acute distress Eyes: nonicteric Neck: supple Effort: normal Auscultation: left: diminished breath sounds Cardiovascular: regular rate and rhythm Gastrointestinal: normoactive bowel sounds Extremities: no cyanosis, no edema Musculoskeletal: no deformities normal mental status, non-focal exam mood appropriate Results - Laboratory Findings PT/INR, D-dimer PT 12.0 Seconds (9.4-12.1) 01/15/19 07:55 - Clinical Findings Intake & Output: Intake & Output 01/15/19 01/15/19 01/15/19 07:59 15:59 23:59 Intake Total 250 / 250 Balance 250 / 250 Weight 64.864 kg Consult Discharge Plan - Plan Referrals: Linh Diaz MD [Primary Care Provider] -
[2019-01-15] MEDS: *HR* Amiodarone 200 MG TABLET PO SCH (21:34)
[2019-01-16 05:50] LABS: Basophils % 0.7 %; Eosinophils # 0.1 K/mcL (0.0-0.6); Hematocrit 36.5 % (35.3-44.9); Hemoglobin 11.2 g/dL (11.5-15.4); Immature Granulocytes % 0.5 % (0-4); Lymphocytes # 0.8 K/mcL (0.6-4.6); Lymphocytes % 13.5 %; Mean Corpuscular HGB Conc 30.7 g/dL (31.6-35.5); Mean Corpuscular Hemoglobin 26.2 pg (28.0-33.3); Mean Corpuscular Volume 85.3 fL (83.0-100.0); Mean Platelet Volume 9.7 fL (9.4-12.4); Monocytes # 0.7 K/mcL (0.0-1.3); Monocytes % 11.7 %; Platelet Count 222 K/mcL (140-400); Red Blood Count 4.28 M/mcL (3.82-4.97); Red Cell Distribution Width 15.9 % (11.5-14.5); Segmented Neutrophils % 71.6 %; White Blood Count 5.6 K/mcL (4.3-11.1)
[2019-01-16] MEDS: Lactobacillus 1 EACH CAP.SPRINK PO SCH (09:05)
[2019-01-16] MEDS: aMILoride 5 MG TABLET PO SCH (09:05)
[2019-01-16] MEDS: Aspirin Enteric Coated 81 MG Tablet PO SCH (09:06)
[2019-01-16] MEDS: *HR* Amiodarone 200 MG TABLET PO SCH ×2 (09:06→20:35)
[2019-01-16] MEDS: Diltiazem CD (24hr) 120 MG CAPSULE PO SCH (09:06)
[2019-01-16] MEDS: Metoprolol XL (24 HR) Succ 50 MG TAB.ER.24H PO SCH ×2 (09:17→13:28)
--- NOTE | 2019-01-16 12:22 | Pulmonology Progress Note ---
Date of Encounter: 01/16/19 Time of Encounter: 08:00 Assessment and Plan (1) Pneumothorax on left Current Visit: Yes Status: Acute Patient still has this slowly enlarging hydropneumothorax gave option to patient about tube thoracostomy with chest tube drainage versus conservative management with oxygen supplementation. Patient opted for chest tube drainage spoke with interventional radiology decided to do CT-guided chest tube drainage. Continue suction on the chest tube. If there is more than 1000 ml of Pleural fluid please take off suction and will repeat CXR at director workforce management 4 am . (2) Pleural effusion Current Visit: Yes Status: Acute Left-sided pleural effusion chest tube drainage serosanguineous discharge previous settles and shows transudative pleural effusion prior to thoracentesis patient was on Eliquis just stopped 48 hours before procedure. We will repeat chest x-ray in the morning (3) CHF (congestive heart failure) Current Visit: Yes Status: Acute Patient has chronic diastolic heart failure we will need diuretics as an outpatient. Counseled the importance of salt and water restriction. Qualifiers: Heart failure type: diastolic Heart failure chronicity: chronic Qualified Code(s): I50.32 - Chronic diastolic (congestive) heart failure Subjective Principal diagnosis: left sided hydropneumothorax Interval history: Patient is here post procedure left-sided pneumothorax now hydropneumothorax repeat chest x-ray slowly enlarging pneumothorax and no symptoms will discuss with interventional radiology regarding her tube thoracostomy. Patient denies any chest pain chest tightness denies any palpitation or syncope. Objective PUL Vital signs: Last Vital Signs Temp 98.2 F 01/16/19 11:28 Pulse 61 01/16/19 11:28 Resp 17 01/16/19 11:28 BP 143/66 01/16/19 11:28 Pulse Ox 98 01/16/19 11:28 General appearance: no acute distress Eyes: nonicteric ENT: oropharynx moist Auscultation: left: diminished breath sounds Cardiovascular: regular rate and rhythm Gastrointestinal: normoactive bowel sounds Integumentary: normal Extremities: no cyanosis, no edema Musculoskeletal: no deformities normal mental status, non-focal exam mood appropriate Results - Laboratory Findings CBC and BMP: 01/16/19 05:27 PT/INR, D-dimer PT 12.0 Seconds (9.4-12.1) 01/15/19 07:55 Abnormal lab findings: Abnormal lab results Hgb 11.2 g/dL (11.5-15.4) L 01/16/19 05:27 MCH 26.2 pg (28.0-33.3) L 01/16/19 05:27 MCHC 30.7 g/dL (31.6-35.5) L 01/16/19 05:27 RDW 15.9 % (11.5-14.5) H 01/16/19 05:27 - Clinical Findings Intake & Output: Intake & Output 01/15/19 01/16/19 01/16/19 23:59 07:59 15:59 Intake Total 237 / 487 120 / 120 Output Total 200 / 200 100 / 100 Balance 37 / 287 -100 / 20 120 / 20 Weight 64.5 kg Consult Discharge Plan - Plan Referrals: Linh Diaz MD [Primary Care Provider] -
--- NOTE | 2019-01-16 12:43 | IR Procedure Note ---
Date of procedure: 01/16/19 Consent Obtained: Written consent Timeout: Correct patient and procedure verified, Correct site verified, Time out performed, Skin prep completed Local anesthetic: Lidocaine 1% Was there an clinical research assistant present: No Estimated blood loss (cc): 0 Complications: None; Tolerated procedure well Indications: Left hydropneumothorax Procedure Performed: CT guided left chest tube placement Results/Findings (any specimens removed): 10F left chest tube placement Post Procedure Treatment Plan: monitor on floor Specimen: none
--- NOTE | 2019-01-16 13:05 | Internal Med Progress Note ---
Hospitalist Progress Note - Encounter Date of Encounter: 01/16/19 Time of Encounter: 13:02 - Subjective Interval History: Patient was seen and examined at bedside this morning. Pt denies any SOB on O2 support. Pt denies any fever, chills, nausea and vomiting. - Exam Vitals: Temp Pulse Resp BP Pulse Ox 98.2 F 61 17 143/66 98 01/16/19 11:28 01/16/19 11:28 01/16/19 11:28 01/16/19 11:28 01/16/19 11:28 Exam: Constitutional: Vitals as noted. Conversant. No Apparent Distress. Respiratory : Clear to auscultation bilaterally. No accessory muscle use, rales, rhonchi or wheezes, 8 cm size subcutaneous emphysema around procedure site. Cardiovascular : RRR, +S1, +S2. no murmur, gallop, rubs. No chest wall tender ness GI/Abdominal : Soft, Non-tender, Non-distended, normal bowel sounds, no pe ritoneal signs. no orgenomegaly or mass appreciated. no hernia. Musculoskeletal: no deformity noted. 1+ edema b/l, warm extremities, pulses palpable and symmetrical in UE/LE. Neurological: AO X3, CN II-XII grossly intact, grossly normal motor and sensory exam. Skin: b/l LE dermatitis changes Pych: poor memory. AOx3. - Assessment and Plan (1) Pneumothorax Current Visit: Yes Status: Acute Assessment and Plan: Patient with postprocedure pneumothorax. Mild subcutaneous emphysema around surgical site. We will obtain serial chest x-rays. Chest x-ray this morning shows left hydropneumothorax, which is mildly increased in size and had a chest x-ray yesterday Continue on supplemental oxygen Pulmonology consulted. Appreciate pulmonology recommendations (2) Pneumonia Current Visit: Yes Status: Acute Assessment and Plan: Patient was on amoxicillin at home. We will resume once home dose confirmed. (3) Atrial fibrillation Current Visit: No Status: Acute Assessment and Plan: patient's heart rate is controlled. Will hold Eliquis for now post procedure We will continue to hold for now. Confirmed other home medications dosing. (4) HTN (hypertension) Current Visit: No Status: Chronic Assessment and Plan: Continue home meds - Time Spent with Patient Total time spent is greater than 50% in coordination of care (as documented) at patient's floor/unit and/or counseling patient: 25 - 35 minutes Plan of Care Discussed with: patient Internal Medicine: Result - Labs CBC & Chem 7: 01/16/19 05:27 Labs: Short CBC 01/16/19 Range/Units 05:27 WBC 5.6 (4.3-11.1) K/mcL Hgb 11.2 L (11.5-15.4) g/dL Hct 36.5 (35.3-44.9) % Plt Count 222 (140-400) K/mcL Neutrophils # 4.0 (1.6-8.9) K/mcL - ABG Interpretation ABG results: PT/INR, D-dimer PT 12.0 Seconds (9.4-12.1) 01/15/19 07:55 - Impressions Impressions Chest X-Ray 01/15/19 13:54 IMPRESSION: Persistent left-sided hydropneumothorax, not significantly changed D/ / Eduardo Mayorga MD / Eduardo Mayorga MD Interpreting Provider: Eduardo Mayorga MD Chest X-Ray 01/16/19 07:24 IMPRESSION: 1. Slight interval increase in size of a small left-sided hydropneumothorax as described above. 2. Persistent blunting of the left hemidiaphragm representing a combination of pleural effusion and likely adjacent atelectasis. D/ / Aguilar Henderson / Aguilar Henderson Interpreting Provider: Aguilar Henderson Consult Discharge Plan - Plan Referrals: Linh Diaz MD [Primary Care Provider] - (1) Pneumothorax Qualifiers: Pneumothorax type: postprocedural Qualified Code(s): J95.811 - Postprocedural pneumothorax (2) Pneumonia Qualifiers: Pneumonia type: due to unspecified organism Laterality: unspecified laterality Lung location: unspecified part of lung Qualified Code(s): J18.9 - Pneumonia, unspecified organism (3) Atrial fibrillation Qualifiers: Atrial fibrillation type: paroxysmal Qualified Code(s): I48.0 - Paroxysmal atrial fibrillation (4) HTN (hypertension) Qualifiers: Hypertension type: essential hypertension Qualified Code(s): I10 - Essential (primary) hypertension
[2019-01-16] MEDS: *HR* HYDROcodone/Acet 5/325 mg TABLET PO PRN (18:08)
[2019-01-17] MEDS: *HR* HYDROcodone/Acet 5/325 mg TABLET PO PRN ×2 (02:24→14:11)
[2019-01-17 04:32] LABS: Basophils % 0.4 %; Eosinophils # 0.1 K/mcL (0.0-0.6); Eosinophils % 0.8 %; Hematocrit 38.5 % (35.3-44.9); Immature Granulocytes % 0.7 % (0-4); Lymphocytes # 0.5 K/mcL (0.6-4.6); Lymphocytes % 7.1 %; Mean Corpuscular HGB Conc 31.2 g/dL (31.6-35.5); Mean Corpuscular Hemoglobin 25.9 pg (28.0-33.3); Mean Corpuscular Volume 83.2 fL (83.0-100.0); Mean Platelet Volume 9.8 fL (9.4-12.4); Monocytes # 0.8 K/mcL (0.0-1.3); Monocytes % 11.2 %; Neutrophils # 5.9 K/mcL (1.6-8.9); Platelet Count 232 K/mcL (140-400); Red Blood Count 4.63 M/mcL (3.82-4.97); Red Cell Distribution Width 15.9 % (11.5-14.5); Segmented Neutrophils % 79.8 %; White Blood Count 7.4 K/mcL (4.3-11.1)
[2019-01-17 04:50] LABS: BUN/Creatinine Ratio 23 (6-26); Blood Urea Nitrogen 22 mg/dL (8-23); Calcium 8.7 mg/dL (8.6-10.3); Carbon Dioxide 26 mEq/L (23-29); Chloride 104 mEq/L (98-107); Glucose 108 mg/dL (70-105); Osmolality,Calculated 286 (280-300); Potassium 3.9 mEq/L (3.5-5.1); Sodium 136 mEq/L (136-145); eGFR For African Americans > 60 (> 60); eGFR For Non-African Americans 57 (> 60)
[2019-01-17] MEDS: aMILoride 5 MG TABLET PO SCH (09:06)
[2019-01-17] MEDS: Metoprolol XL (24 HR) Succ 50 MG TAB.ER.24H PO SCH (09:06)
[2019-01-17] MEDS: Lactobacillus 1 EACH CAP.SPRINK PO SCH (09:07)
[2019-01-17] MEDS: *HR* Amiodarone 200 MG TABLET PO SCH (09:07)
[2019-01-17] MEDS: Diltiazem CD (24hr) 120 MG CAPSULE PO SCH (09:07)
[2019-01-17] MEDS: Aspirin Enteric Coated 81 MG Tablet PO SCH (09:07)
--- NOTE | 2019-01-17 11:54 | Pulmonology Progress Note ---
<Shaun Olguin - Last Filed: 01/17/19 14:22> Date of Encounter: 01/17/19 Time of Encounter: 11:45 (estimated) Assessment and Plan (1) CHF (congestive heart failure) Status: Acute Qualifiers: Heart failure type: diastolic Heart failure chronicity: chronic Qualified Code(s): I50.32 - Chronic diastolic (congestive) heart failure (2) Pleural effusion Status: Acute (3) Pneumothorax on left Status: Acute Subjective Principal diagnosis: left sided hydropneumothorax Interval history: Subjective Patient continues to feel "pretty good". She does have some pain in the left chest wall exacerbated by deep breathing Objective PE Gen.: Elderly female. No acute distress Skin: Good turgor of forehead Eyes: Moist. Anicteric Cardiac: S1, S2. Regular rhythm. At least 3/6 systolic murmur best heard over aortic post Respiratory: Diminished lung sounds in bases. Scattered crackles posterior montoya. Extremities: Capillary refill less than 2 seconds bilateral upper extremities. Venous stasis changes bilateral lower extremities without obvious pitting edema. Ecchymosis bilateral knees. Neuro: No obvious tremors noted Psych: Appropriate mood and behavior. Answers questions coherently A/P #Pneumothorax on left Status post attempted thoracentesis 01/15 Initial CXR 01/15 showed less than 2 cm apical hydropneumothorax Morning CXR 01/16 showed slight interval increase CT-guided thoracostomy tube placed 01/16 CXR 01/17 showed improvement -off suction. Tube clamped and no air leaks seen within collection container -CXR scheduled for 2 PM. Plan to remove chest tube pending adequate lung expansion #Pleural effusion Left-sided History of left-sided pleural effusion in 10/2018 with no malignant cells found within -As above #CHF Last found echo 10/29/18 read as: LVEF 60%. Mild concentric LVH with moderate left atrial dilation. Left ventricular diastolic dysfunction. -Recommend outpatient diuretics with salt and water restriction -Per primary Objective PUL Vital signs: Last Vital Signs Temp 97.9 F 01/17/19 11:15 Pulse 59 01/17/19 11:15 Resp 16 01/17/19 11:15 BP 152/79 01/17/19 11:15 Pulse Ox 96 01/17/19 11:15 Results - Laboratory Findings CBC and BMP: 01/17/19 03:46 01/17/19 03:46 PT/INR, D-dimer PT 12.0 Seconds (9.4-12.1) 01/15/19 07:55 Abnormal lab findings: Abnormal lab results Hgb 11.2 g/dL (11.5-15.4) L 01/16/19 05:27 MCH 25.9 pg (28.0-33.3) L 01/17/19 03:46 MCHC 31.2 g/dL (31.6-35.5) L 01/17/19 03:46 RDW 15.9 % (11.5-14.5) H 01/17/19 03:46 Lymphocytes # 0.5 K/mcL (0.6-4.6) L 01/17/19 03:46 Est GFR (Non-Af Amer) 57 (> 60) L 01/17/19 03:46 Glucose 108 mg/dL (70-105) H 01/17/19 03:46 - Clinical Findings Intake & Output: Intake & Output 01/16/19 01/17/19 01/17/19 23:59 07:59 15:59 Intake Total 120 / 240 240 / 240 Output Total 1100 / 1200 500 / 550 50 / 550 Balance -980 / -960 -500 / -310 190 / -310 Weight 63.1 kg Consult Discharge Plan - Plan Instructions: Pneumonia (DC) Referrals: Linh Diaz MD [Primary Care Provider] - () Cristino Shelby MD [Partnered Physician] - 01/23/19 11:00 am Prescriptions: HYDROcodone/Acet 5/325 mg [[place] 5-325 mg] 1 tab PO Q6HR PRN 3 Days #12 tablet PRN Reason: pain Prescription Printed <Cristino Shelby - Last Filed: 01/17/19 20:45> Date of Encounter: 01/17/19 Assessment and Plan (1) Pneumothorax on left Status: Acute (2) Pleural effusion Status: Acute (3) CHF (congestive heart failure) Status: Acute Qualifiers: Heart failure type: diastolic Heart failure chronicity: chronic Qualified Code(s): I50.32 - Chronic diastolic (congestive) heart failure Objective PUL Vital signs: Last Vital Signs Temp 98.5 F 01/17/19 14:36 Pulse 61 01/17/19 14:36 Resp 14 01/17/19 14:36 BP 114/63 01/17/19 14:36 Pulse Ox 96 01/17/19 14:36 Results - Laboratory Findings CBC and BMP: 01/17/19 03:46 01/17/19 03:46 PT/INR, D-dimer PT 12.0 Seconds (9.4-12.1) 01/15/19 07:55 Abnormal lab findings: Abnormal lab results Hgb 11.2 g/dL (11.5-15.4) L 01/16/19 05:27 MCH 25.9 pg (28.0-33.3) L 01/17/19 03:46 MCHC 31.2 g/dL (31.6-35.5) L 01/17/19 03:46 RDW 15.9 % (11.5-14.5) H 01/17/19 03:46 Lymphocytes # 0.5 K/mcL (0.6-4.6) L 01/17/19 03:46 Est GFR (Non-Af Amer) 57 (> 60) L 01/17/19 03:46 Glucose 108 mg/dL (70-105) H 01/17/19 03:46 - Clinical Findings Intake & Output: Intake & Output 01/17/19 01/17/19 01/17/19 07:59 15:59 23:59 Intake Total 240 / 260 20 / 260 Output Total 500 / 550 50 / 550 Balance -500 / -290 190 / -290 20 / -290 Weight 63.1 kg - Attending Attestation I saw and evaluated this patient and my medical decision-making was reviewed with the Resident Physician. I agree with the documented findings, disposition and treatment plan as described except to the extent set forth below. We independently had [id number] contact with the patient Patient seen and examined at bedside Labs, radiology, chart personally reviewed. Management was reviewed during multidisciplinary critical care rounds. Patient is followed up for her left-sided hydropneumothorax after clamping the chest tube today evening patient did not show any evidence of reaccumulation of the pneumothorax or pleural effusion. Chest tube was successfully removed the wound was covered with gauze. Repeat chest x-ray after chest tube removal did not show any evidence of left-sided hydropneumothorax patient was discharged under stable condition. Discuss the case with her primary hospitalist Dr. Khan.
[2019-01-17 14:38] VITALS: BP 114/63
--- NOTE | 2019-01-17 17:39 | Discharge Summary ---
- NOTES TO OUTPATIENT PROVIDER Notes to Outpatient Provider: The patient was admitted for left-sided pneumothorax and subsequently left-sided hemopneumothorax and hydropneumothorax. Logic consult was placed. Patient was placed on chest tube for one day. Chest tube was removed on the day of discharge. X-ray status post chest tube removal was stable. Patient was discharged home in stable condition. Plan to follow-up with primary care provider within one week. Advised to follow-up with Dr. Shelby within 1 week. Date of Encounter: 01/17/19 Time of Encounter: 17:38 - Discharge Diagnosis (1) Pneumothorax Priority: Primary Status: Acute Qualifiers: Pneumothorax type: postprocedural Qualified Code(s): J95.811 - Postprocedural pneumothorax (2) Pneumonia Priority: Secondary Status: Acute Qualifiers: Pneumonia type: due to unspecified organism Laterality: unspecified laterality Lung location: unspecified part of lung Qualified Code(s): J18.9 - Pneumonia, unspecified organism (3) Atrial fibrillation Priority: Secondary Status: Acute Qualifiers: Atrial fibrillation type: paroxysmal Qualified Code(s): I48.0 - Paroxysmal atrial fibrillation (4) HTN (hypertension) Priority: Secondary Status: Chronic Qualifiers: Hypertension type: essential hypertension Qualified Code(s): I10 - Essential (primary) hypertension Hospital course: Ms. Hutchinson is a 83 year old female was admitted for left-sided pneumothorax and subsequently left-sided hemopneumothorax and hydropneumothorax. Logic consult was placed. Patient was placed on chest tube for one day. Chest tube was removed on the day of discharge. X-ray status post chest tube removal was stable. Patient was discharged home in stable condition. Plan to follow-up with primary care provider within one week. Advised to follow-up with Dr. Shelby within 1 week. Discharge discussed with: patient, nurse, social work, systems consultant - Time Spent with Patient Total time spent providing and/or coordinating discharge services: 35 Time spent: Greater than 30 minutes - Discharge Medications Prescriptions: New HYDROcodone/Acet 5/325 mg [[place] 5-325 mg] 1 tab PO Q6HR PRN 3 Days #12 tablet PRN Reason: pain Continued Aspirin Enteric Coated [Aspirin EC] 81 mg PO QAM Amiodarone [Cordarone] 200 mg PO Q12H Diltiazem HCl [Cardizem LA] 120 mg PO QAM Metoprolol XL (24 HR) Succ [Toprol Xl] 50 mg PO DAILY #30 tab.er.24h Benzonatate [Tessalon] 100 mg PO TID PRN PRN Reason: Cough aMILoride [Midamor] 5 mg PO QAM L.acidoph,Paracasei, B.lactis [Probiotic] 1 cap PO QAM Apixaban [Eliquis] 2.5 mg PO Q12H Home Medications: Aspirin Enteric Coated [Aspirin EC] 81 mg PO QAM 09/11/15 [History] Amiodarone [Cordarone] 200 mg PO Q12H 10/15/18 [History] Diltiazem HCl [Cardizem LA] 120 mg PO QAM 10/15/18 [History] Metoprolol XL (24 HR) Succ [Toprol Xl] 50 mg PO DAILY #30 tab.er.24h 10/16/18 [Rx] Benzonatate [Tessalon] 100 mg PO TID PRN 10/27/18 [History] aMILoride [Midamor] 5 mg PO QAM 10/27/18 [History] L.acidoph,Paracasei, B.lactis [Probiotic] 1 cap PO QAM 10/28/18 [History] Apixaban [Eliquis] 2.5 mg PO Q12H 01/15/19 [History] HYDROcodone/Acet 5/325 mg [[place] 5-325 mg] 1 tab PO Q6HR PRN 3 Days #12 tablet 01/17/19 [Rx] Allergies/Adverse Reactions: Allergy/AdvReac Type Severity Reaction Status Date / Time No Known Allergies Allergy Verified 10/28/18 17:09 Date of admission: 01/16/19 12:55 Primary care physician: Linh Diaz MD Consults: 01/15/19 12:11 Consult to Pulmonology [CONS] Routine Consulting Provider: [facility] Reason for Consult: pneumothorax Call Completed: Yes 01/16/19 08:22 Consult to Nurse Navigator [CONS] Routine Comment: pneumonia 01/16/19 11:21 Consult to Interventional Radiology [CONS] Routine Consulting Provider: Radiology Interventional Cols Reason for Consult: CT guided chest tube Time Notified: 11:22 Call Completed: Yes Discharging clinician: Jd Khan - Constitutional Vitals: Temp Pulse Resp BP Pulse Ox 98.5 F 61 14 114/63 96 01/17/19 14:36 01/17/19 14:36 01/17/19 14:36 01/17/19 14:36 01/17/19 14:36 General appearance: Present: cooperative, A&O X 3 Exam: Constitutional: Vitals as noted. Conversant. No Apparent Distress. Respiratory : Clear to auscultation bilaterally. No accessory muscle use, rales, rhonchi or wheezes, 8 cm size subcutaneous emphysema around procedure site. Cardiovascular : RRR, +S1, +S2. no murmur, gallop, rubs. No chest wall tenderness GI/Abdominal : Soft, Non-tender, Non-distended, normal bowel sounds, no peritoneal signs. no orgenomegaly or mass appreciated. no hernia. Musculoskeletal: no deformity noted. 1+ edema b/l, warm extremities, pulses palpable and symmetrical in UE/LE. Neurological: AO X3, CN II-XII grossly intact, grossly normal motor and sensory exam. Skin: b/l LE dermatitis changes Pych: poor memory. AOx3. - Patient Status Disposition: Home, Self-Care Condition: Good Overall status at discharge: patient is progressing back to baseline - Discharge Instructions Follow Up With: Linh Diaz MD [Primary Care Provider] - - Diet and Activity Activity: increase activity as tolerated Diet: low salt diet
--- NOTE | 2019-01-17 20:48 | Procedure Note ---
Date of procedure: 01/17/19 Pre-op diagnosis: Hydropneumothorax Post-op diagnosis: same Procedure: Patient left-sided chest tube was removed at the end of expiration. Patient tolerated the procedure well. After the procedure patient denies any chest pain chest tightness repeat chest x-ray after chest tube removal shows no evidence of left-sided hydropneumothorax. Anesthesia: none Surgeon: Cristino Shelby Was there an mortgage loan assistant present: Yes Rouge Sifter: Shaun Olguin Estimated blood loss (cc): 0 Specimen: none Pathology: none sent Condition: stable Disposition: floor
== END 2019-01-17 19:31 | disposition home or self-care (01) | DRG 199 ==
LOC: ENDPAV 06:35 → 3ANU 06:35 → ENDPAV 11:10 → SUATTDRO 11:30 → UNDODEPSDC 14:58
PROVIDERS: ADMIT Internal Medicine; ATTEND Family Medicine
PROC: ENDOAPI (2019-01-15 07:30)

== ENCOUNTER 2020-01-12 03:31 | Inpatient (IN) ==
[2020-01-12] MEDS ORDERED: Ondansetron 4 MG/2 ML VIAL IVP ONE (03:36)
[2020-01-12] MEDS ORDERED: Morphine Sulfate 2 MG/ML SYRINGE IVP ONE ×2 (03:36→04:36)
[2020-01-12 04:05] LABS: Basophils # 0.1 K/mcL (0.0-0.2); Basophils % 0.8 %; Eosinophils # 0.1 K/mcL (0.0-0.6); Eosinophils % 0.6 %; Hematocrit 42.7 % (35.3-44.9); Hemoglobin 12.9 g/dL (11.5-15.4); Immature Granulocytes % 0.4 % (0-4); Lymphocytes # 0.9 K/mcL (0.6-4.6); Lymphocytes % 10.4 %; Mean Corpuscular HGB Conc 30.2 g/dL (31.6-35.5); Mean Corpuscular Hemoglobin 23.9 pg (28.0-33.3); Mean Corpuscular Volume 79.2 fL (83.0-100.0); Mean Platelet Volume 9.7 fL (9.4-12.4); Monocytes # 0.7 K/mcL (0.0-1.3); Monocytes % 7.3 %; Neutrophils # 7.3 K/mcL (1.6-8.9); Platelet Count 222 K/mcL (140-400); Red Blood Count 5.39 M/mcL (3.82-4.97); Red Cell Distribution Width 16.4 % (11.5-14.5); Segmented Neutrophils % 80.5 %
[2020-01-12 04:10] LABS: INR 1.2; Prothrombin Time 14.1 Seconds (9.4-12.1)
[2020-01-12 04:27] LABS: Alanine Aminotransferase 25 Units/L (7-52); Albumin 4.4 g/dL (3.5-5.7); Albumin/Globulin Ratio 1.8 (1.1-2.2); Alkaline Phosphatase 74 Units/L (34-104); Amylase 41 Units/L (29-103); Aspartate Amino Transferase 24 Units/L (13-39); BUN/Creatinine Ratio 28 (6-26); Bilirubin,Direct 0.2 mg/dL (0.0-0.2); Bilirubin,Indirect 0.9 mg/dL (0.0-1.0); Bilirubin,Total 1.1 mg/dL (0.3-1.0); Blood Urea Nitrogen 37 mg/dL (8-23); Calcium 9.6 mg/dL (8.6-10.3); Carbon Dioxide 26 mEq/L (23-29); Chloride 102 mEq/L (98-107); Globulin 2.5 g/dL (2.4-3.5); Glucose 149 mg/dL (70-105); Lipase 32 Units/L (11-82); Osmolality,Calculated 299 (280-300); Potassium 4.1 mEq/L (3.5-5.1); Sodium 139 mEq/L (136-145); Total Protein 6.9 g/dL (6.4-8.9); Troponin I < 0.03 ng/mL (< 0.04); eGFR For African Americans 46 (> 60); eGFR For Non-African Americans 38 (> 60)
[2020-01-12] MEDS ORDERED: 0.9 % Sodium Chloride 1,000 ML IVC ONE (04:38)
[2020-01-12 04:44] LABS: Bilirubin,Urine Negative (Negative); Blood,Urine Negative (Negative); Clarity,Urine Clear (Clear); Color,Urine Light-Yellow (Yellow); Glucose,Urine (UA) Normal (Normal); Ketones,Urine Negative (Negative); Leukocyte Esterase,Urine Negative (Negative); Nitrite,Urine Negative (Negative); PH,Urine 6.5 pH Units (5.0-8.0); Protein,Urine Negative (Neg-Trace); Specific Gravity,Urine 1.015 (1.010-1.025); Urobilinogen,Urine Normal (Normal)
[2020-01-12] MEDS ORDERED: Naloxone 0.4 MG/ML INJ IVP PRN (05:01)
[2020-01-12] MEDS ORDERED: Morphine Sulfate 2 MG/ML SYRINGE IVP PRN (05:03)
[2020-01-12] MEDS: 0.9 % Sodium Chloride 1,000 ML IVC SCH ×2 (06:28→08:37)
[2020-01-12] MEDS ORDERED: aMILoride 5 MG TABLET PO SCH (09:00)
[2020-01-12] MEDS ORDERED: DilTIAZem CD (24hr) 120 MG CAP.ER.24H PO SCH (09:00)
[2020-01-12] MEDS ORDERED: *HR* Amiodarone 200 MG TABLET PO SCH (09:00)
[2020-01-12] MEDS ORDERED: *HR* HYDROmorphone (PF) 1 MG/ML SYRINGE IVP PRN ×3 (10:15→11:23)
[2020-01-12] MEDS ORDERED: *HR* Heparin 5,000 UNIT/ML VIAL IVP PRN (11:13)
[2020-01-12] MEDS ORDERED: Heparin 25,000UNIT/250ML 1/2NS 25,000 UNIT/250 ML IV.SOLN IVC SCH (11:15)
[2020-01-12] MEDS: Acetaminophen IV 1,000 MG/100 ML INFUS..BTL IVPB SCH ×3 (11:26→23:37)
[2020-01-12 11:50] LABS: Hematocrit 45.2 % (35.3-44.9); Hemoglobin 13.5 g/dL (11.5-15.4); Mean Corpuscular HGB Conc 29.9 g/dL (31.6-35.5); Mean Corpuscular Hemoglobin 23.9 pg (28.0-33.3); Mean Platelet Volume 9.9 fL (9.4-12.4); Platelet Count 287 K/mcL (140-400); Red Blood Count 5.65 M/mcL (3.82-4.97); Red Cell Distribution Width 16.3 % (11.5-14.5)
[2020-01-12 11:52] LABS: White Blood Count 15.2 K/mcL (4.3-11.1)
[2020-01-12 12:04] LABS: Heparin anti-factor XA UFH 0.95 IU/mL (0.30-0.70); INR 1.2; Prothrombin Time 13.4 Seconds (9.4-12.1)
[2020-01-13] MEDS ORDERED: *HR* Promethazine 25 MG/ML VIAL IVP PRN (02:06)
[2020-01-13] MEDS ORDERED: 0.9 % Sodium Chloride 500 ML IV ONE (04:45)
[2020-01-13] MEDS ORDERED: 0.9 % Sodium Chloride 500 ML ONE (04:45)
[2020-01-13 05:32] LABS: Red Cell Distribution Width 17.9 % (11.5-14.5)
[2020-01-13 05:34] LABS: Hematocrit 52.1 % (35.3-44.9); Hemoglobin 14.5 g/dL (11.5-15.4); Mean Corpuscular HGB Conc 27.8 g/dL (31.6-35.5); Mean Corpuscular Hemoglobin 23.8 pg (28.0-33.3); Mean Corpuscular Volume 85.6 fL (83.0-100.0); Mean Platelet Volume 10.5 fL (9.4-12.4); Platelet Count 381 K/mcL (140-400); Red Blood Count 6.09 M/mcL (3.82-4.97)
[2020-01-13 05:35] LABS: INR 1.2; Prothrombin Time 13.4 Seconds (9.4-12.1)
[2020-01-13 05:38] LABS: White Blood Count 33.5 K/mcL (4.3-11.1)
[2020-01-13] MEDS ORDERED: Piperacillin/Tazobactam 3.375 GM in 0.9 % Sodium Chloride Mini Bag 100 ML IVPB ONE (05:46)
[2020-01-13 05:55] LABS: Calcium 8.8 mg/dL (8.6-10.3); Magnesium 3.1 mg/dL (1.6-2.6); Phosphorous 9.7 mg/dL (2.7-4.5); Potassium 4.2 mEq/L (3.5-5.1)
[2020-01-13] MEDS ORDERED: 0.9 % Sodium Chloride 1,000 ML IVC SCH ×2 (06:00→07:24)
[2020-01-13 06:07] LABS: Lymphocytes # 3.4 K/mcL (0.6-4.6); Macrocytosis Present (Not Present); Neutrophils # 28.1 K/mcL (1.6-8.9)
[2020-01-13 06:08] LABS: Platelet Estimate Normal (Normal); Reactive Lymphocytes Present (Not Present)
[2020-01-13] MEDS ORDERED: 0.9 % Sodium Chloride 1,000 ML IVC ONE (07:04)
[2020-01-13] MEDS ORDERED: *HR* Propofol 200 MG/20 ML VIAL IVP ONE (07:11)
[2020-01-13] MEDS ORDERED: *HR* Rocuronium Bromide 50 MG/5 ML VIAL ONE (07:11)
[2020-01-13] MEDS ORDERED: *HR* FentaNYL (PF) 100 MCG/2 ML VIAL ONE (07:11)
[2020-01-13] MEDS ORDERED: Dexamethasone 4 MG/ML VIAL ONE (07:11)
[2020-01-13] MEDS ORDERED: *HR* Succinylcholine 200 MG/10 ML VIAL IVP ONE (07:11)
[2020-01-13] MEDS ORDERED: Lidocaine -MPF 2% 2 ML VIAL ONE ×2 (07:11→07:15)
[2020-01-13] MEDS ORDERED: Ondansetron 4 MG/2 ML VIAL ONE (07:11)
[2020-01-13] MEDS ORDERED: *HR* Phenylephrine 10 MG/ML VIAL ONE (07:13)
[2020-01-13] MEDS ORDERED: *HR* Etomidate 40 MG/20 ML VIAL IVP ONE (07:13)
[2020-01-13] MEDS ORDERED: EPHEDrine 50 MG/ML VIAL ONE (07:15)
[2020-01-13 07:16] LABS: Troponin I 0.04 ng/mL (< 0.04)
[2020-01-13] MEDS ORDERED: *HR* Vasopressin 20 UNIT/ML VIAL ONE (07:16)
[2020-01-13] MEDS ORDERED: Albumin Human 5% 12.5 GM/250 ML IV.SOLN ONE (07:17)
[2020-01-13] MEDS ORDERED: Heparin 1,000 UNITS/500 mL 500 ML ONE (07:22)
[2020-01-13] MEDS ORDERED: Lidocaine HCL 4 ML Topical Solution (Laryng-O-Jet Kit Sterile Pak) TP ONE (07:50)
[2020-01-13 08:56] LABS: ABG Base Excess -13 mEq/L (-2 to 3); ABG Chloride 107 mEq/L (98-107); ABG Glucose 103 mg/dL (60-95); ABG HCO3 15 mEq/L (21-27); ABG Ionized Calcium 1.06 mmol/L (1.15-1.35); ABG Oxygen Saturation 100 % (95-98); ABG PCO2 42 mmHg (35-45); ABG PH 7.15 pH Units (7.32-7.45); ABG PO2 291 mmHg (85-104); ABG TCO2 16 mEq/L (20-26)
[2020-01-13] MEDS ORDERED: Metoprolol XL (24 HR) Succ 25 MG TAB.ER.24H PO SCH ×2 (09:00→09:51)
[2020-01-13] MEDS ORDERED: *HR* Midazolam HCl 2 MG/2 ML VIAL ONE (09:22)
[2020-01-13] MEDS ORDERED: DilTIAZem CD (24hr) 120 MG CAP.ER.24H PO SCH (09:51)
[2020-01-13] MEDS ORDERED: Artificial Tears SOLN 15 ML BOTTLE BOTH EYES PRN ×2 (09:52→10:36)
[2020-01-13 10:35] LABS: Calcium 7.3 mg/dL (8.6-10.3); Potassium 4.7 mEq/L (3.5-5.1)
[2020-01-13] MEDS ORDERED: *HR* FentaNYL (PF) 100 MCG/2 ML VIAL IVP PRN (10:36)
[2020-01-13] MEDS ORDERED: *HR* HYDROmorphone (PF) 1 MG/ML SYRINGE IVP PRN (10:36)
[2020-01-13] MEDS ORDERED: Naloxone 0.4 MG/ML INJ IVP PRN (10:36)
[2020-01-13] MEDS: 0.9 % Sodium Chloride 1,000 ML IVC SCH ×3 (10:46→23:07)
[2020-01-13 10:58] LABS: ABG Base Excess -10 mEq/L (-2 to 3); ABG HCO3 18 mEq/L (21-27); ABG Oxygen Saturation 100 % (95-98); ABG PCO2 43 mmHg (35-45); ABG PH 7.23 pH Units (7.32-7.45); ABG PO2 317 mmHg (85-104); ABG TCO2 19 mEq/L (20-26); Blood Gas Modality ASSIST CONTROL; Blood Gas VT 450 cc
[2020-01-13] MEDS ORDERED: Ringers Solution, Lactated 1,000 ML ONE (10:58)
[2020-01-13] MEDS ORDERED: Ringers Solution, Lactated 1,000 ML IVC ONE (11:02)
[2020-01-13 11:26] LABS: Hematocrit 37.2 % (35.3-44.9); Hemoglobin 10.9 g/dL (11.5-15.4); Mean Corpuscular HGB Conc 29.3 g/dL (31.6-35.5); Mean Corpuscular Hemoglobin 24.5 pg (28.0-33.3); Mean Corpuscular Volume 83.6 fL (83.0-100.0); Mean Platelet Volume 10.8 fL (9.4-12.4); Platelet Count 195 K/mcL (140-400); Red Blood Count 4.45 M/mcL (3.82-4.97); Red Cell Distribution Width 16.6 % (11.5-14.5); White Blood Count 15.5 K/mcL (4.3-11.1)
[2020-01-13] MEDS: Fluconazole 200 MG/100 ML 200 MG/100 ML BAG IVPB SCH (11:41)
[2020-01-13] MEDS: Artificial Tears SOLN 15 ML BOTTLE BOTH EYES SCH ×4 (11:48→23:07)
[2020-01-13] MEDS ORDERED: Artificial Tears SOLN 15 ML BOTTLE BOTH EYES SCH (12:00)
[2020-01-13] MEDS: Acetaminophen IV 1,000 MG/100 ML INFUS..BTL IVPB SCH ×3 (12:03→23:07)
[2020-01-13 15:27] LABS: Bacteria,Urine Few per hpf (None-Few); Bilirubin,Urine Negative (Negative); Blood,Urine Small (Negative); Clarity,Urine Turbid (Clear); Color,Urine Yellow (Yellow); Glucose,Urine (UA) Normal (Normal); Hyaline Casts,Urine Few per lpf (None Seen); Ketones,Urine Trace mg/dL (Negative); Leukocyte Esterase,Urine Negative (Negative); Mucus,Urine Few per lpf (None-Few); Nitrite,Urine Negative (Negative); Protein,Urine 50 mg/dL (Neg-Trace); RBC,Urine 0-3 per hpf (0-3); Squamous Epithelial Cell,Urine Few per hpf (None-Few); Urobilinogen,Urine Normal (Normal)
[2020-01-13 15:35] LABS: Creatinine,Urine 79 mg/dL
[2020-01-13] MEDS: *HR* Heparin 5,000 UNIT/ML VIAL SQ SCH (16:59)
[2020-01-13] MEDS: Piperacillin/Tazobactam 3.375 GM in 0.9 % Sodium Chloride Mini Bag 100 ML IVPB SCH (16:59)
[2020-01-13] MEDS ORDERED: FentaNYL (PF) 1,000 MCG/100 ML IV.SOLN IVC PRN (17:16)
[2020-01-13] MEDS ORDERED: Piperacillin/Tazobactam 3.375 GM in 0.9 % Sodium Chloride Mini Bag 100 ML IVPB SCH (18:00)
[2020-01-13] MEDS ORDERED: *HR* Heparin 5,000 UNIT/ML VIAL SQ SCH (18:00)
[2020-01-13] MEDS: Chlorhexidine Rinse 15 ML MOUTHWASH MM SCH (20:17)
[2020-01-13] MEDS ORDERED: Chlorhexidine Rinse 15 ML MOUTHWASH MM SCH (21:00)
[2020-01-14] MEDS: Artificial Tears SOLN 15 ML BOTTLE BOTH EYES SCH ×3 (02:57→13:28)
[2020-01-14 03:39] LABS: ABG Base Excess -7 mEq/L (-2 to 3); ABG HCO3 19 mEq/L (21-27); ABG Oxygen Saturation 99 % (95-98); ABG PCO2 41 mmHg (35-45); ABG PH 7.28 pH Units (7.32-7.45); ABG PO2 134 mmHg (85-104); ABG TCO2 21 mEq/L (20-26); Blood Gas Modality AF; Blood Gas VT 450 cc
[2020-01-14 04:07] LABS: Basophils % 0.1 %; Hematocrit 37.7 % (35.3-44.9); Hemoglobin 11.2 g/dL (11.5-15.4); Immature Granulocytes % 0.4 % (0-4); Lymphocytes # 0.6 K/mcL (0.6-4.6); Lymphocytes % 4.5 %; Mean Corpuscular HGB Conc 29.7 g/dL (31.6-35.5); Mean Corpuscular Volume 80.7 fL (83.0-100.0); Mean Platelet Volume 10.4 fL (9.4-12.4); Monocytes % 14.2 %; Platelet Count 218 K/mcL (140-400); Red Blood Count 4.67 M/mcL (3.82-4.97); Red Cell Distribution Width 17.2 % (11.5-14.5); Segmented Neutrophils % 80.8 %; White Blood Count 13.9 K/mcL (4.3-11.1)
[2020-01-14 04:15] LABS: Calcium 7.3 mg/dL (8.6-10.3); Potassium 5.5 mEq/L (3.5-5.1)
[2020-01-14 04:19] LABS: Neutrophils # 11.2 K/mcL (1.6-8.9)
[2020-01-14 05:01] LABS: Anisocytosis 1+ (Not Present); Platelet Estimate Normal (Normal); Poikilocytosis 1+ (Not Present); Reactive Lymphocytes Present (Not Present)
[2020-01-14] MEDS: *HR* Heparin 5,000 UNIT/ML VIAL SQ SCH ×2 (05:06→18:00)
[2020-01-14] MEDS: Piperacillin/Tazobactam 3.375 GM in 0.9 % Sodium Chloride Mini Bag 100 ML IVPB SCH ×2 (05:06→18:00)
[2020-01-14] MEDS: 0.9 % Sodium Chloride 1,000 ML IVC SCH ×3 (05:07→19:49)
[2020-01-14] MEDS: Acetaminophen IV 1,000 MG/100 ML INFUS..BTL IVPB SCH ×2 (05:07→13:31)
[2020-01-14] MEDS: Chlorhexidine Rinse 15 ML MOUTHWASH MM SCH (08:18)
[2020-01-14] MEDS: Fluconazole 200 MG/100 ML 200 MG/100 ML BAG IVPB SCH (08:18)
[2020-01-14] MEDS ORDERED: Pantoprazole 40 MG VIAL IVP SCH ×2 (09:00)
[2020-01-14 11:45] LABS: Troponin I 0.03 ng/mL (< 0.04)
[2020-01-14 16:00] LABS: Uric Acid 6.6 mg/dL (2.3-7.6)
[2020-01-14 17:26] LABS: Sodium, Urine 14.2 mEq/L
[2020-01-14] MEDS ORDERED: Naloxone 0.4 MG/ML INJ IVP PRN (18:07)
[2020-01-15] MEDS: Acetaminophen IV 1,000 MG/100 ML INFUS..BTL IVPB SCH ×4 (00:17→18:36)
[2020-01-15] MEDS: 0.9 % Sodium Chloride 1,000 ML IVC SCH ×5 (01:27→22:32)
[2020-01-15] MEDS: *HR* Heparin 5,000 UNIT/ML VIAL SQ SCH ×2 (05:18→18:36)
[2020-01-15] MEDS: Piperacillin/Tazobactam 3.375 GM in 0.9 % Sodium Chloride Mini Bag 100 ML IVPB SCH ×2 (05:19→18:37)
[2020-01-15 06:47] LABS: Mean Corpuscular HGB Conc 29.7 g/dL (31.6-35.5); Mean Corpuscular Hemoglobin 24.2 pg (28.0-33.3); Mean Corpuscular Volume 81.6 fL (83.0-100.0); Mean Platelet Volume 10.7 fL (9.4-12.4); Nucleated Red Blood Cells 0.5 /100 WBC (0); Platelet Count 153 K/mcL (140-400); Red Blood Count 3.92 M/mcL (3.82-4.97)
[2020-01-15 06:55] LABS: Hemoglobin 9.5 g/dL (11.5-15.4)
[2020-01-15 07:08] LABS: Lymphocytes # 1.2 K/mcL (0.6-4.6); Monocytes # 0.4 K/mcL (0.0-1.3); Neutrophils # 4.4 K/mcL (1.6-8.9); Ovalocytes 1+ (Not Present); Platelet Estimate Normal (Normal); Poikilocytosis 1+ (Not Present); Reactive Lymphocytes Present (Not Present)
[2020-01-15 07:20] LABS: Calcium 7.5 mg/dL (8.6-10.3); Potassium 5.9 mEq/L (3.5-5.1)
[2020-01-15] MEDS ORDERED: Insulin Human Regular 10 UNIT in 0.9 % Sodium Chloride 10 ML IV ONE (07:30)
[2020-01-15] MEDS ORDERED: *HR* Dextrose 50 % in Water (Vial) 50 ML VIAL IVP ONE (07:30)
[2020-01-15] MEDS: Pantoprazole 40 MG VIAL IVP SCH (08:17)
[2020-01-15] MEDS ORDERED: Fluconazole 200 MG/100 ML 200 MG/100 ML BAG IVPB SCH (09:00)
[2020-01-15] MEDS ORDERED: 0.9 % Sodium Chloride 1,000 ML IVC ONE (09:25)
[2020-01-15 10:10] LABS: Hematocrit 27.5 % (35.3-44.9)
[2020-01-15] MEDS ORDERED: 0.9 % Sodium Chloride 1,000 ML IV ONE (11:21)
[2020-01-15] MEDS: DilTIAZem CD (24hr) 120 MG CAP.ER.24H PO SCH ×2 (12:57→13:21)
[2020-01-15] MEDS: Metoprolol XL (24 HR) Succ 25 MG TAB.ER.24H PO SCH ×2 (12:57→13:21)
[2020-01-15 16:02] LABS: Hematocrit 26.1 % (35.3-44.9); Hemoglobin 7.8 g/dL (11.5-15.4); Mean Corpuscular HGB Conc 29.9 g/dL (31.6-35.5); Mean Corpuscular Hemoglobin 24.3 pg (28.0-33.3); Mean Corpuscular Volume 81.3 fL (83.0-100.0); Mean Platelet Volume 10.3 fL (9.4-12.4); Platelet Count 122 K/mcL (140-400); Red Blood Count 3.21 M/mcL (3.82-4.97)
[2020-01-15 16:18] LABS: Magnesium 2.3 mg/dL (1.6-2.6); Phosphorous 6.5 mg/dL (2.7-4.5); Potassium 5.3 mEq/L (3.5-5.1)
[2020-01-15 22:16] LABS: Hematocrit 25.8 % (35.3-44.9); Hemoglobin 7.4 g/dL (11.5-15.4)
[2020-01-15] MEDS ORDERED: Dextrose Gel 15 GM/37.5 ML TUBE PO PRN ×2 (22:26)
[2020-01-15] MEDS ORDERED: D5% in Water 1,000 ML IVC PRN (22:26)
[2020-01-15] MEDS: *HR* Dextrose 50 % in Water (Vial) 50 ML VIAL IVP PRN (22:34)
[2020-01-16] MEDS ORDERED: 0.9 % Sodium Chloride 250 ML ONE (00:09)
[2020-01-16] MEDS: Acetaminophen IV 1,000 MG/100 ML INFUS..BTL IVPB SCH ×2 (02:04→05:23)
[2020-01-16 04:22] LABS: Hematocrit 30.1 % (35.3-44.9); Mean Corpuscular HGB Conc 30.2 g/dL (31.6-35.5); Mean Corpuscular Hemoglobin 25.6 pg (28.0-33.3); Mean Corpuscular Volume 84.8 fL (83.0-100.0); Mean Platelet Volume 10.2 fL (9.4-12.4); Platelet Count 126 K/mcL (140-400); Red Blood Count 3.55 M/mcL (3.82-4.97); Red Cell Distribution Width 18.2 % (11.5-14.5); White Blood Count 3.5 K/mcL (4.3-11.1)
[2020-01-16 04:38] LABS: Calcium 7.4 mg/dL (8.6-10.3)
[2020-01-16 04:49] LABS: Hemoglobin 9.1 g/dL (11.5-15.4)
[2020-01-16] MEDS: *HR* Heparin 5,000 UNIT/ML VIAL SQ SCH ×2 (05:22→17:31)
[2020-01-16] MEDS: 0.9 % Sodium Chloride 1,000 ML IVC SCH ×3 (05:22→22:14)
[2020-01-16] MEDS: Piperacillin/Tazobactam 3.375 GM in 0.9 % Sodium Chloride Mini Bag 100 ML IVPB SCH ×2 (05:23→17:27)
[2020-01-16 05:24] LABS: Albumin 2.3 g/dL (3.5-5.7); Albumin/Globulin Ratio 1.4 (1.1-2.2); Bilirubin,Total 0.7 mg/dL (0.3-1.0); Globulin 1.6 g/dL (2.4-3.5); Magnesium 2.4 mg/dL (1.6-2.6); Phosphorous 6.6 mg/dL (2.7-4.5); Total Protein 3.9 g/dL (6.4-8.9)
[2020-01-16] MEDS ORDERED: Ringers Solution, Lactated 1,000 ML IVC SCH ×2 (07:30→09:08)
[2020-01-16] MEDS ORDERED: Lidocaine -MPF 1% 5 ML AMPUL INFILT ONE (08:51)
[2020-01-16] MEDS: Pantoprazole 40 MG VIAL IVP SCH (08:58)
[2020-01-16] MEDS ORDERED: Fluconazole 200 MG/100 ML 100 MG/50 ML BAG IVPB SCH (09:00)
[2020-01-16] MEDS: Fluconazole 200 MG/100 ML 200 MG/100 ML BAG IVPB SCH (09:01)
[2020-01-16] MEDS ORDERED: *HR* Metoprolol 5 MG/5 ML VIAL IVP PRN (09:20)
[2020-01-16] MEDS ORDERED: *HR* Dextrose 50 % in Water (Vial) 50 ML VIAL IVP PRN (09:26)
[2020-01-16] MEDS ORDERED: Dextrose Gel 15 GM/37.5 ML TUBE PO PRN ×2 (09:26)
[2020-01-16] MEDS ORDERED: D5% in Water 1,000 ML IVC PRN (09:26)
[2020-01-16] MEDS ORDERED: D10% in Water 500 ML IVC PRN (09:48)
[2020-01-16 09:54] LABS: Hematocrit 31.3 % (35.3-44.9); Hemoglobin 9.6 g/dL (11.5-15.4)
[2020-01-16] MEDS ORDERED: Acetaminophen IV 1,000 MG/100 ML INFUS..BTL IVPB PRN (11:00)
[2020-01-16] MEDS: *HR* Dextrose 50 % in Water (Vial) 50 ML VIAL IVP PRN (11:26)
[2020-01-16] MEDS ORDERED: Chloraseptic Spray 177 ML BOTTLE MM PRN (11:42)
[2020-01-16] MEDS ORDERED: Insulin LISPRO 300 UNITS/3 ML VIAL SQ SCH (12:00)
[2020-01-16] MEDS: Insulin LISPRO 300 UNITS/3 ML VIAL SQ SCH ×3 (12:01→20:44)
[2020-01-16] MEDS ORDERED: Clinimix 5%-20% SOLUTION 2,000 ML with MVI, adult with vitamin K 10 ML, Sodium Acetat... IVC SCH (17:00)
[2020-01-17] MEDS: Insulin LISPRO 300 UNITS/3 ML VIAL SQ SCH ×7 (00:32→23:55)
[2020-01-17 04:16] LABS: Hematocrit 29.5 % (35.3-44.9); Hemoglobin 8.9 g/dL (11.5-15.4); Mean Corpuscular HGB Conc 30.2 g/dL (31.6-35.5); Mean Corpuscular Hemoglobin 24.7 pg (28.0-33.3); Mean Corpuscular Volume 81.9 fL (83.0-100.0); Platelet Count 109 K/mcL (140-400); Red Cell Distribution Width 18.6 % (11.5-14.5); White Blood Count 4.3 K/mcL (4.3-11.1)
[2020-01-17 04:35] LABS: Albumin 2.2 g/dL (3.5-5.7); Albumin/Globulin Ratio 1.2 (1.1-2.2); Bilirubin,Total 0.7 mg/dL (0.3-1.0); Calcium 8.4 mg/dL (8.6-10.3); Globulin 1.8 g/dL (2.4-3.5); Magnesium 2.5 mg/dL (1.6-2.6); Phosphorous 5.3 mg/dL (2.7-4.5); Potassium 4.4 mEq/L (3.5-5.1)
[2020-01-17] MEDS: *HR* Heparin 5,000 UNIT/ML VIAL SQ SCH ×2 (05:40→17:49)
[2020-01-17] MEDS: Piperacillin/Tazobactam 3.375 GM in 0.9 % Sodium Chloride Mini Bag 100 ML IVPB SCH ×2 (05:40→17:51)
[2020-01-17] MEDS: Fluconazole 200 MG/100 ML 200 MG/100 ML BAG IVPB SCH (09:35)
[2020-01-17] MEDS: Pantoprazole 40 MG VIAL IVP SCH (09:36)
[2020-01-17] MEDS: DilTIAZem CD (24hr) 120 MG CAP.ER.24H PO SCH (12:41)
[2020-01-17] MEDS: Metoprolol XL (24 HR) Succ 25 MG TAB.ER.24H PO SCH (12:42)
[2020-01-17] MEDS ORDERED: Clinimix 5%-20% SOLUTION 2,000 ML with MVI, adult with vitamin K 10 ML, Sodium Acetat... IVC SCH (17:00)
[2020-01-18] MEDS: 0.9 % Sodium Chloride 1,000 ML IVC SCH (01:41)
[2020-01-18] MEDS: DilTIAZem CD (24hr) 120 MG CAP.ER.24H PO SCH ×2 (01:43→10:11)
[2020-01-18] MEDS: Metoprolol XL (24 HR) Succ 25 MG TAB.ER.24H PO SCH ×2 (01:43→10:11)
[2020-01-18 04:35] LABS: Hematocrit 28.5 % (35.3-44.9); Hemoglobin 8.6 g/dL (11.5-15.4); Mean Corpuscular HGB Conc 30.2 g/dL (31.6-35.5); Mean Corpuscular Hemoglobin 24.4 pg (28.0-33.3); Mean Corpuscular Volume 80.7 fL (83.0-100.0); Mean Platelet Volume 10.2 fL (9.4-12.4); Platelet Count 100 K/mcL (140-400); Red Blood Count 3.53 M/mcL (3.82-4.97); Red Cell Distribution Width 18.7 % (11.5-14.5); White Blood Count 5.4 K/mcL (4.3-11.1)
[2020-01-18 04:51] LABS: Calcium 8.7 mg/dL (8.6-10.3); Magnesium 2.4 mg/dL (1.6-2.6); Phosphorous 3.3 mg/dL (2.7-4.5); Potassium 3.6 mEq/L (3.5-5.1)
[2020-01-18] MEDS: Piperacillin/Tazobactam 3.375 GM in 0.9 % Sodium Chloride Mini Bag 100 ML IVPB SCH ×2 (05:20→17:33)
[2020-01-18] MEDS: *HR* Heparin 5,000 UNIT/ML VIAL SQ SCH ×2 (05:33→17:40)
[2020-01-18] MEDS ORDERED: Metoclopramide 10 MG/2 ML VIAL IVP SCH (09:10)
[2020-01-18] MEDS ORDERED: *HR* OxyCODONE/APAP 5/325 TABLET PO PRN (09:12)
[2020-01-18] MEDS: Insulin LISPRO 300 UNITS/3 ML VIAL SQ SCH ×4 (10:10→20:34)
[2020-01-18] MEDS: Pantoprazole 40 MG VIAL IVP SCH (10:11)
[2020-01-18] MEDS: Fluconazole 200 MG/100 ML 200 MG/100 ML BAG IVPB SCH (10:12)
[2020-01-18] MEDS: Metoclopramide 20 MG in 0.9 % Sodium Chloride 50 ML IVPB SCH ×2 (10:25→17:41)
[2020-01-18] MEDS ORDERED: Clinimix 5%-20% SOLUTION 2,000 ML with MVI, adult with vitamin K 10 ML, Sodium Acetat... IVC SCH (17:00)
[2020-01-19] MEDS: Insulin LISPRO 300 UNITS/3 ML VIAL SQ SCH ×6 (01:10→19:32)
[2020-01-19] MEDS: Metoclopramide 20 MG in 0.9 % Sodium Chloride 50 ML IVPB SCH ×3 (02:18→18:31)
[2020-01-19 05:10] LABS: Hematocrit 26.2 % (35.3-44.9); Hemoglobin 7.9 g/dL (11.5-15.4); Immature Platelets 2.9 % (1.1-6.1); Mean Corpuscular HGB Conc 30.2 g/dL (31.6-35.5); Mean Corpuscular Hemoglobin 24.8 pg (28.0-33.3); Mean Corpuscular Volume 82.1 fL (83.0-100.0); Nucleated Red Blood Cells 1.2 /100 WBC (0); Red Blood Count 3.19 M/mcL (3.82-4.97); Red Cell Distribution Width 18.2 % (11.5-14.5); White Blood Count 8.1 K/mcL (4.3-11.1)
[2020-01-19 05:20] LABS: Platelet Count 86 K/mcL (140-400)
[2020-01-19 05:21] LABS: Calcium 8.3 mg/dL (8.6-10.3); Magnesium 2.2 mg/dL (1.6-2.6); Phosphorous 2.8 mg/dL (2.7-4.5); Potassium 3.2 mEq/L (3.5-5.1)
[2020-01-19 05:42] LABS: Anisocytosis 1+ (Not Present); Microcytosis Present (Not Present); Monocytes # 0.8 K/mcL (0.0-1.3); Neutrophils # 6.3 K/mcL (1.6-8.9); Platelet Estimate Decreased (Normal)
[2020-01-19] MEDS ORDERED: Potassium Chloride 20 MEQ, Lidocaine 1% 2 ML in 0.9 % Sodium Chloride 250 ML IVPB ONE (06:05)
[2020-01-19] MEDS: Piperacillin/Tazobactam 3.375 GM in 0.9 % Sodium Chloride Mini Bag 100 ML IVPB SCH ×2 (06:25→18:32)
[2020-01-19] MEDS: *HR* Heparin 5,000 UNIT/ML VIAL SQ SCH ×2 (06:26→18:46)
[2020-01-19] MEDS: Calcium Gluconate 1gm/50mL 1 GM/50 ML BAG IVPB SCH ×2 (06:56→09:06)
[2020-01-19] MEDS: Pantoprazole 40 MG VIAL IVP SCH (09:05)
[2020-01-19] MEDS: DilTIAZem CD (24hr) 120 MG CAP.ER.24H PO SCH (09:07)
[2020-01-19] MEDS: Metoprolol XL (24 HR) Succ 25 MG TAB.ER.24H PO SCH (09:07)
[2020-01-19] MEDS: Fluconazole 200 MG/100 ML 200 MG/100 ML BAG IVPB SCH (09:08)
[2020-01-19] MEDS ORDERED: Furosemide 40 MG/4 ML VIAL IVP ONE (11:16)
[2020-01-19] MEDS ORDERED: Clinimix 5%-20% SOLUTION 2,000 ML with MVI, adult with vitamin K 10 ML, Sodium Acetat... IVC SCH (17:00)
[2020-01-20] MEDS: Insulin LISPRO 300 UNITS/3 ML VIAL SQ SCH ×6 (00:13→21:02)
[2020-01-20] MEDS: *HR* Heparin 5,000 UNIT/ML VIAL SQ SCH ×2 (05:34→18:03)
[2020-01-20] MEDS: Piperacillin/Tazobactam 3.375 GM in 0.9 % Sodium Chloride Mini Bag 100 ML IVPB SCH ×3 (05:34→21:16)
[2020-01-20 06:08] LABS: Calcium 8.2 mg/dL (8.6-10.3); Magnesium 2.1 mg/dL (1.6-2.6); Phosphorous 2.9 mg/dL (2.7-4.5); Potassium 2.7 mEq/L (3.5-5.1)
[2020-01-20] MEDS ORDERED: Potassium Chloride 40 MEQ, Lidocaine 1% 2 ML in 0.9 % Sodium Chloride 500 ML IVPB ONE ×2 (07:36→19:00)
[2020-01-20] MEDS: Metoprolol XL (24 HR) Succ 25 MG TAB.ER.24H PO SCH (09:03)
[2020-01-20] MEDS: DilTIAZem CD (24hr) 120 MG CAP.ER.24H PO SCH (09:03)
[2020-01-20] MEDS: Pantoprazole 40 MG VIAL IVP SCH (09:03)
[2020-01-20] MEDS: Fluconazole 200 MG/100 ML 200 MG/100 ML BAG IVPB SCH (09:12)
[2020-01-20] MEDS ORDERED: Furosemide 40 MG/4 ML VIAL IVP ONE (11:53)
[2020-01-20] MEDS ORDERED: Clinimix E 5%-15% SOLUTION 2,000 ML with MVI, adult with vitamin K 10 ML IVC SCH (17:00)
[2020-01-20] MEDS ORDERED: Ondansetron 4 MG/2 ML VIAL IVP PRN (17:12)
[2020-01-20] MEDS: Saliva Stimulant 100ml BOTTLE PO PRN ×2 (18:04→21:16)
[2020-01-20] MEDS: Metoclopramide 10 MG/2 ML VIAL IVP SCH (22:10)
[2020-01-21] MEDS: Insulin LISPRO 300 UNITS/3 ML VIAL SQ SCH ×6 (00:31→22:02)
[2020-01-21 05:41] LABS: Basophils % 0.2 %; Eosinophils # 0.1 K/mcL (0.0-0.6); Eosinophils % 0.7 %; Hematocrit 26.7 % (35.3-44.9); Hemoglobin 8.1 g/dL (11.5-15.4); Immature Granulocytes % 1.5 % (0-4); Lymphocytes # 0.5 K/mcL (0.6-4.6); Lymphocytes % 3.8 %; Mean Corpuscular HGB Conc 30.3 g/dL (31.6-35.5); Mean Corpuscular Hemoglobin 25.1 pg (28.0-33.3); Mean Corpuscular Volume 82.7 fL (83.0-100.0); Monocytes # 1.3 K/mcL (0.0-1.3); Monocytes % 10.6 %; Nucleated Red Blood Cells 0.6 /100 WBC (0); Platelet Count 127 K/mcL (140-400); Red Blood Count 3.23 M/mcL (3.82-4.97); Red Cell Distribution Width 17.8 % (11.5-14.5); Segmented Neutrophils % 83.2 %
[2020-01-21 05:47] LABS: Calcium 7.5 mg/dL (8.6-10.3); Magnesium 1.9 mg/dL (1.6-2.6); Phosphorous 2.8 mg/dL (2.7-4.5); Potassium 2.8 mEq/L (3.5-5.1)
[2020-01-21] MEDS: *HR* Heparin 5,000 UNIT/ML VIAL SQ SCH ×2 (06:16→16:52)
[2020-01-21] MEDS: Piperacillin/Tazobactam 3.375 GM in 0.9 % Sodium Chloride Mini Bag 100 ML IVPB SCH ×3 (06:17→23:01)
[2020-01-21] MEDS: Metoclopramide 10 MG/2 ML VIAL IVP SCH ×4 (06:17→23:02)
[2020-01-21 07:12] LABS: Anisocytosis 1+ (Not Present); Platelet Estimate Normal (Normal)
[2020-01-21] MEDS ORDERED: Potassium Chloride 40 MEQ, Lidocaine 1% 2 ML in 0.9 % Sodium Chloride 500 ML IVPB ONE ×2 (07:32→17:00)
[2020-01-21] MEDS ORDERED: Isovue-370 500 ML BOTTLE IVP ONE (07:45)
[2020-01-21] MEDS: Fluconazole 200 MG/100 ML 200 MG/100 ML BAG IVPB SCH (08:03)
[2020-01-21] MEDS: DilTIAZem CD (24hr) 120 MG CAP.ER.24H PO SCH (08:03)
[2020-01-21] MEDS: Pantoprazole 40 MG VIAL IVP SCH (08:03)
[2020-01-21] MEDS: Metoprolol XL (24 HR) Succ 25 MG TAB.ER.24H PO SCH (08:03)
[2020-01-21] MEDS ORDERED: Ondansetron 4 MG/2 ML VIAL IVP ONE (09:25)
[2020-01-21] MEDS: Furosemide 40 MG/4 ML VIAL IVP SCH (14:14)
[2020-01-21] MEDS ORDERED: Clinimix E 5%-15% SOLUTION 2,000 ML with MVI, adult with vitamin K 10 ML IVC SCH (17:00)
[2020-01-21] MEDS ORDERED: Metoclopramide 10 MG/2 ML VIAL IVP SCH (21:50)
[2020-01-22] MEDS: *HR* Heparin 5,000 UNIT/ML VIAL SQ SCH ×2 (05:22→17:03)
[2020-01-22] MEDS: Metoclopramide 10 MG/2 ML VIAL IVP SCH ×4 (05:23→23:54)
[2020-01-22] MEDS: Piperacillin/Tazobactam 3.375 GM in 0.9 % Sodium Chloride Mini Bag 100 ML IVPB SCH ×3 (05:23→19:56)
[2020-01-22] MEDS: Insulin LISPRO 300 UNITS/3 ML VIAL SQ SCH ×7 (05:24→23:58)
[2020-01-22 06:04] LABS: Calcium 7.5 mg/dL (8.6-10.3); Phosphorous 3.2 mg/dL (2.7-4.5); Potassium 2.9 mEq/L (3.5-5.1)
[2020-01-22 06:07] LABS: Basophils % 0.1 %; Eosinophils # 0.1 K/mcL (0.0-0.6); Eosinophils % 1.4 %; Hematocrit 24.1 % (35.3-44.9); Hemoglobin 7.2 g/dL (11.5-15.4); Immature Granulocytes % 1.2 % (0-4); Lymphocytes # 0.4 K/mcL (0.6-4.6); Lymphocytes % 4.7 %; Mean Corpuscular HGB Conc 29.9 g/dL (31.6-35.5); Mean Corpuscular Hemoglobin 25.6 pg (28.0-33.3); Mean Corpuscular Volume 85.8 fL (83.0-100.0); Mean Platelet Volume 11.2 fL (9.4-12.4); Monocytes # 0.8 K/mcL (0.0-1.3); Monocytes % 9.1 %; Neutrophils # 7.7 K/mcL (1.6-8.9); Nucleated Red Blood Cells 0.2 /100 WBC (0); Platelet Count 126 K/mcL (140-400); Red Blood Count 2.81 M/mcL (3.82-4.97); Segmented Neutrophils % 83.5 %; White Blood Count 9.2 K/mcL (4.3-11.1)
[2020-01-22] MEDS: DilTIAZem CD (24hr) 120 MG CAP.ER.24H PO SCH (08:20)
[2020-01-22] MEDS: Metoprolol XL (24 HR) Succ 25 MG TAB.ER.24H PO SCH (08:20)
[2020-01-22] MEDS: Furosemide 40 MG/4 ML VIAL IVP SCH (08:46)
[2020-01-22] MEDS: Pantoprazole 40 MG VIAL IVP SCH (08:46)
[2020-01-22] MEDS: Fluconazole 200 MG/100 ML 200 MG/100 ML BAG IVPB SCH (08:46)
[2020-01-22] MEDS ORDERED: Clinimix 5%-20% SOLUTION 2,000 ML with MVI, adult with vitamin K 10 ML, Trace Element... IVC SCH (17:00)
[2020-01-23] MEDS: Insulin LISPRO 300 UNITS/3 ML VIAL SQ SCH ×5 (05:37→20:15)
[2020-01-23] MEDS: Metoclopramide 10 MG/2 ML VIAL IVP SCH (05:38)
[2020-01-23] MEDS: *HR* Heparin 5,000 UNIT/ML VIAL SQ SCH (05:38)
[2020-01-23] MEDS: Piperacillin/Tazobactam 3.375 GM in 0.9 % Sodium Chloride Mini Bag 100 ML IVPB SCH ×3 (05:39→20:57)
[2020-01-23 06:36] LABS: Basophils % 0.1 %; Eosinophils # 0.1 K/mcL (0.0-0.6); Eosinophils % 1.5 %; Hematocrit 24.1 % (35.3-44.9); Hemoglobin 7.1 g/dL (11.5-15.4); Immature Granulocytes % 1.1 % (0-4); Lymphocytes # 0.4 K/mcL (0.6-4.6); Lymphocytes % 5.3 %; Mean Corpuscular HGB Conc 29.5 g/dL (31.6-35.5); Mean Corpuscular Hemoglobin 24.8 pg (28.0-33.3); Mean Corpuscular Volume 84.3 fL (83.0-100.0); Monocytes # 0.6 K/mcL (0.0-1.3); Monocytes % 8.3 %; Neutrophils # 6.1 K/mcL (1.6-8.9); Nucleated Red Blood Cells 0.3 /100 WBC (0); Platelet Count 147 K/mcL (140-400); Red Blood Count 2.86 M/mcL (3.82-4.97); Red Cell Distribution Width 18.1 % (11.5-14.5); Segmented Neutrophils % 83.7 %; White Blood Count 7.3 K/mcL (4.3-11.1)
[2020-01-23 06:43] LABS: INR 1.1; Prothrombin Time 12.6 Seconds (9.4-12.1)
[2020-01-23 06:57] LABS: BUN/Creatinine Ratio 44 (6-26); Blood Urea Nitrogen 43 mg/dL (8-23); Calcium 7.5 mg/dL (8.6-10.3); Carbon Dioxide 26 mEq/L (23-29); Chloride 118 mEq/L (98-107); Glucose 154 mg/dL (70-105); Magnesium 1.9 mg/dL (1.6-2.6); Osmolality,Calculated 320 (280-300); Phosphorous 2.9 mg/dL (2.7-4.5); Potassium 3.1 mEq/L (3.5-5.1); Sodium 148 mEq/L (136-145); eGFR For African Americans > 60 (> 60); eGFR For Non-African Americans 54 (> 60)
[2020-01-23] MEDS ORDERED: *HR* Metoprolol 5 MG/5 ML VIAL IVP PRN (07:54)
[2020-01-23] MEDS ORDERED: 0.9 % Sodium Chloride 250 ML IVC SCH (09:15)
[2020-01-23] MEDS ORDERED: Methylnaltrexone 12 MG/0.6 ML SYRINGE SQ ONE (09:16)
[2020-01-23] MEDS: Pantoprazole 40 MG VIAL IVP SCH (09:29)
[2020-01-23] MEDS: Furosemide 40 MG/4 ML VIAL IVP SCH (09:29)
[2020-01-23] MEDS: Fluconazole 200 MG/100 ML 200 MG/100 ML BAG IVPB SCH (09:40)
[2020-01-23] MEDS ORDERED: Iron Sucrose Complex 200 MG in 0.9 % Sodium Chloride 100 ML IVPB ONE (11:47)
[2020-01-23] MEDS ORDERED: Clinimix 5%-20% SOLUTION 2,000 ML with MVI, adult with vitamin K 10 ML, Trace Element... IVC SCH (17:00)
[2020-01-23] MEDS ORDERED: *HR* Metoprolol 5 MG/5 ML VIAL IVP ONE (21:23)
[2020-01-24] MEDS: Insulin LISPRO 300 UNITS/3 ML VIAL SQ SCH ×7 (00:03→23:35)
[2020-01-24 00:33] LABS: Basophils % 0.3 %; Eosinophils # 0.1 K/mcL (0.0-0.6); Eosinophils % 1.4 %; Hematocrit 29.2 % (35.3-44.9); Immature Granulocytes % 1.3 % (0-4); Lymphocytes # 0.5 K/mcL (0.6-4.6); Lymphocytes % 6.4 %; Mean Corpuscular HGB Conc 29.8 g/dL (31.6-35.5); Mean Corpuscular Hemoglobin 24.7 pg (28.0-33.3); Mean Platelet Volume 11.3 fL (9.4-12.4); Monocytes # 0.8 K/mcL (0.0-1.3); Monocytes % 10.2 %; Neutrophils # 6.2 K/mcL (1.6-8.9); Platelet Count 170 K/mcL (140-400); Red Blood Count 3.52 M/mcL (3.82-4.97); Red Cell Distribution Width 18.3 % (11.5-14.5); Segmented Neutrophils % 80.4 %; White Blood Count 7.7 K/mcL (4.3-11.1)
[2020-01-24 00:34] LABS: Hemoglobin 8.7 g/dL (11.5-15.4)
[2020-01-24 00:44] LABS: BUN/Creatinine Ratio 44 (6-26); Blood Urea Nitrogen 40 mg/dL (8-23); Calcium 7.5 mg/dL (8.6-10.3); Carbon Dioxide 27 mEq/L (23-29); Chloride 115 mEq/L (98-107); Glucose 138 mg/dL (70-105); Osmolality,Calculated 316 (280-300); Phosphorous 2.6 mg/dL (2.7-4.5); Potassium 3.5 mEq/L (3.5-5.1); Sodium 147 mEq/L (136-145); Triglycerides 82 mg/dL (< 150); eGFR For African Americans > 60 (> 60); eGFR For Non-African Americans 60 (> 60)
[2020-01-24] MEDS: Piperacillin/Tazobactam 3.375 GM in 0.9 % Sodium Chloride Mini Bag 100 ML IVPB SCH ×3 (05:20→22:02)
[2020-01-24] MEDS: Furosemide 40 MG/4 ML VIAL IVP SCH (07:20)
[2020-01-24] MEDS: Fluconazole 200 MG/100 ML 200 MG/100 ML BAG IVPB SCH (07:20)
[2020-01-24] MEDS: Pantoprazole 40 MG VIAL IVP SCH (07:20)
[2020-01-24] MEDS: *HR* Metoprolol 5 MG/5 ML VIAL IVP SCH ×5 (09:28→23:29)
[2020-01-24] MEDS ORDERED: Potassium Phosphate 44 MEQ in 0.9 % Sodium Chloride 250 ML IVPB ONE (15:35)
[2020-01-24] MEDS ORDERED: Clinimix 5%-20% SOLUTION 2,000 ML, Parenteral Amino Acid 10% 0 ML with MVI, adult with... IVC SCH (17:00)
[2020-01-24] MEDS ORDERED: Clinimix 5%-20% SOLUTION 2,000 ML with MVI, adult with vitamin K 10 ML, Sodium Phosph... IVC SCH (17:00)
[2020-01-25 04:19] LABS: Hemoglobin 8.5 g/dL (11.5-15.4)
[2020-01-25] MEDS: Insulin LISPRO 300 UNITS/3 ML VIAL SQ SCH ×6 (04:56→23:41)
[2020-01-25] MEDS: Piperacillin/Tazobactam 3.375 GM in 0.9 % Sodium Chloride Mini Bag 100 ML IVPB SCH ×3 (04:57→22:30)
[2020-01-25] MEDS: *HR* Metoprolol 5 MG/5 ML VIAL IVP SCH ×3 (04:57→12:28)
[2020-01-25 06:34] LABS: BUN/Creatinine Ratio 43 (6-26); Blood Urea Nitrogen 36 mg/dL (8-23); Calcium 7.5 mg/dL (8.6-10.3); Carbon Dioxide 27 mEq/L (23-29); Chloride 111 mEq/L (98-107); Glucose 149 mg/dL (70-105); Magnesium 1.9 mg/dL (1.6-2.6); Osmolality,Calculated 307 (280-300); Phosphorous 3.4 mg/dL (2.7-4.5); Potassium 3.6 mEq/L (3.5-5.1); Sodium 143 mEq/L (136-145); eGFR For African Americans > 60 (> 60); eGFR For Non-African Americans > 60 (> 60)
[2020-01-25] MEDS ORDERED: *HR* Heparin 5,000 UNIT/ML VIAL SQ SCH (09:00)
[2020-01-25] MEDS: Fluconazole 200 MG/100 ML 200 MG/100 ML BAG IVPB SCH (09:26)
[2020-01-25] MEDS: Pantoprazole 40 MG VIAL IVP SCH (09:26)
[2020-01-25] MEDS: Furosemide 40 MG/4 ML VIAL IVP SCH (09:26)
[2020-01-25] MEDS ORDERED: Clinimix 5%-20% SOLUTION 2,000 ML, Parenteral Amino Acid 10% 0 ML with MVI, adult with... IVC SCH (17:00)
[2020-01-25] MEDS ORDERED: Clinimix 5%-20% SOLUTION 2,000 ML with MVI, adult with vitamin K 10 ML, Sodium Phosph... IVC SCH (17:00)
[2020-01-25] MEDS: *HR* Heparin 5,000 UNIT/ML VIAL SQ SCH (20:12)
[2020-01-25] MEDS ORDERED: *HR* Metoprolol 5 MG/5 ML VIAL IVP ONE (21:00)
[2020-01-26 01:31] LABS: Hematocrit 27.7 % (35.3-44.9); Hemoglobin 7.3 g/dL (11.5-15.4)
[2020-01-26] MEDS: Insulin LISPRO 300 UNITS/3 ML VIAL SQ SCH ×6 (03:51→23:45)
[2020-01-26 04:47] LABS: BUN/Creatinine Ratio 41 (6-26); Blood Urea Nitrogen 36 mg/dL (8-23); Calcium 7.4 mg/dL (8.6-10.3); Carbon Dioxide 30 mEq/L (23-29); Chloride 109 mEq/L (98-107); Glucose 99 mg/dL (70-105); Magnesium 1.9 mg/dL (1.6-2.6); Osmolality,Calculated 302 (280-300); Phosphorous 3.2 mg/dL (2.7-4.5); Potassium 3.7 mEq/L (3.5-5.1); Sodium 142 mEq/L (136-145); eGFR For African Americans > 60 (> 60); eGFR For Non-African Americans > 60 (> 60)
[2020-01-26] MEDS: Piperacillin/Tazobactam 3.375 GM in 0.9 % Sodium Chloride Mini Bag 100 ML IVPB SCH (05:40)
[2020-01-26] MEDS: *HR* Heparin 5,000 UNIT/ML VIAL SQ SCH (08:07)
[2020-01-26] MEDS: Pantoprazole 40 MG VIAL IVP SCH (08:07)
[2020-01-26] MEDS: Furosemide 40 MG/4 ML VIAL IVP SCH (08:08)
[2020-01-26] MEDS: Metoprolol XL (24 HR) Succ 25 MG TAB.ER.24H PO SCH (08:08)
[2020-01-26] MEDS: DilTIAZem CD (24hr) 120 MG CAP.ER.24H PO SCH (08:08)
[2020-01-26] MEDS: Fluconazole 200 MG/100 ML 200 MG/100 ML BAG IVPB SCH (08:09)
[2020-01-26] MEDS ORDERED: Clinimix 5%-20% SOLUTION 2,000 ML with MVI, adult with vitamin K 10 ML, Sodium Phosph... IVC SCH ×3 (08:53→17:00)
[2020-01-26] MEDS: Iron Sucrose Complex 200 MG in 0.9 % Sodium Chloride 100 ML IVPB SCH (09:23)
[2020-01-26 16:07] LABS: Hematocrit 31.7 % (35.3-44.9); Hemoglobin 7.2 g/dL (11.5-15.4)
[2020-01-26] MEDS ORDERED: Clinimix 5%-20% SOLUTION 2,000 ML, Parenteral Amino Acid 10% 0 ML with MVI, adult with... IVC SCH (17:00)
[2020-01-27 02:52] LABS: Hematocrit 27.9 % (35.3-44.9); Hemoglobin 8.3 g/dL (11.5-15.4)
[2020-01-27 03:12] LABS: Albumin 2.1 g/dL (3.5-5.7); Albumin/Globulin Ratio 0.9 (1.1-2.2); BUN/Creatinine Ratio 34 (6-26); Bilirubin,Direct 0.2 mg/dL (0.0-0.2); Bilirubin,Indirect 0.3 mg/dL (0.0-1.0); Bilirubin,Total 0.5 mg/dL (0.3-1.0); Blood Urea Nitrogen 31 mg/dL (8-23); Calcium 7.4 mg/dL (8.6-10.3); Carbon Dioxide 29 mEq/L (23-29); Chloride 105 mEq/L (98-107); Globulin 2.3 g/dL (2.4-3.5); Glucose 86 mg/dL (70-105); Magnesium 1.9 mg/dL (1.6-2.6); Osmolality,Calculated 298 (280-300); Phosphorous 3.4 mg/dL (2.7-4.5); Sodium 141 mEq/L (136-145); Total Protein 4.4 g/dL (6.4-8.9); eGFR For African Americans > 60 (> 60); eGFR For Non-African Americans 59 (> 60)
[2020-01-27] MEDS: Insulin LISPRO 300 UNITS/3 ML VIAL SQ SCH ×6 (04:17→20:24)
[2020-01-27] MEDS: Iron Sucrose Complex 200 MG in 0.9 % Sodium Chloride 100 ML IVPB SCH (09:49)
[2020-01-27] MEDS: Metoprolol XL (24 HR) Succ 25 MG TAB.ER.24H PO SCH (09:50)
[2020-01-27] MEDS: Furosemide 40 MG/4 ML VIAL IVP SCH (09:50)
[2020-01-27] MEDS: DilTIAZem CD (24hr) 120 MG CAP.ER.24H PO SCH (09:50)
[2020-01-27] MEDS: Pantoprazole 40 MG VIAL IVP SCH (09:50)
[2020-01-28 03:37] LABS: Hematocrit 21.8 % (35.3-44.9)
[2020-01-28 03:46] LABS: Hemoglobin 6.4 g/dL (11.5-15.4)
[2020-01-28 03:55] LABS: BUN/Creatinine Ratio 32 (6-26); Blood Urea Nitrogen 23 mg/dL (8-23); Calcium 5.4 mg/dL (8.6-10.3); Carbon Dioxide 22 mEq/L (23-29); Chloride 114 mEq/L (98-107); Glucose 55 mg/dL (70-105); Magnesium 1.4 mg/dL (1.6-2.6); Osmolality,Calculated 291 (280-300); Phosphorous 2.9 mg/dL (2.7-4.5); Potassium 2.7 mEq/L (3.5-5.1); Sodium 140 mEq/L (136-145); eGFR For African Americans > 60 (> 60); eGFR For Non-African Americans > 60 (> 60)
[2020-01-28 05:11] LABS: Hemoglobin 8.2 g/dL (11.5-15.4)
[2020-01-28 05:34] LABS: Albumin/Globulin Ratio 0.9 (1.1-2.2); Bilirubin,Total 0.5 mg/dL (0.3-1.0); Calcium 7.6 mg/dL (8.6-10.3); Globulin 2.3 g/dL (2.4-3.5); Potassium 3.7 mEq/L (3.5-5.1); Total Protein 4.3 g/dL (6.4-8.9)
[2020-01-28] MEDS: Insulin LISPRO 300 UNITS/3 ML VIAL SQ SCH ×4 (08:09→20:49)
[2020-01-28] MEDS: DilTIAZem CD (24hr) 120 MG CAP.ER.24H PO SCH (09:02)
[2020-01-28] MEDS: Furosemide 40 MG/4 ML VIAL IVP SCH (09:02)
[2020-01-28] MEDS: Metoprolol XL (24 HR) Succ 25 MG TAB.ER.24H PO SCH (09:02)
[2020-01-28] MEDS: Iron Sucrose Complex 200 MG in 0.9 % Sodium Chloride 100 ML IVPB SCH (09:02)
[2020-01-29] MEDS: Insulin LISPRO 300 UNITS/3 ML VIAL SQ SCH ×2 (08:05→11:25)
[2020-01-29] MEDS: Furosemide 40 MG/4 ML VIAL IVP SCH (08:14)
[2020-01-29] MEDS: Metoprolol XL (24 HR) Succ 25 MG TAB.ER.24H PO SCH (08:14)
[2020-01-29] MEDS: DilTIAZem CD (24hr) 120 MG CAP.ER.24H PO SCH (08:14)
[2020-01-29] MEDS ORDERED: FLU Vac QV 20-21 (6Month+)/PF 0.5 ML SYRINGE IM ONE (10:10)
[2020-01-29 11:25] VITALS: BP 156/72
[2020-01-29 12:24] LABS: Hematocrit 30.5 % (35.3-44.9); Hemoglobin 9.4 g/dL (11.5-15.4)
== END 2020-01-29 12:58 | DRG 329 ==
LOC: EMEROOARM 03:31 → 2NENU 03:31 → SUATTDRO 05:11 → 3ANU 05:25 → ICNU 01-13 09:11 → SUATTDRO 01-13 11:27 → 2ANU 01-14 19:08
PROVIDERS: ADMIT Family Medicine; ATTEND Internal Medicine

== ENCOUNTER 2020-10-21 11:02 | Observation (INO) ==
[2020-10-21] MEDS ORDERED: 0.9 % Sodium Chloride 1,000 ML IVC ONE (11:56)
[2020-10-21 14:07] LABS: Basophils % 0.8 %; Eosinophils % 0.4 %; Hematocrit 35.1 % (35.3-44.9); Hemoglobin 10.2 g/dL (11.5-15.4); Immature Granulocytes % 0.2 % (0-4); Lymphocytes # 0.8 K/mcL (0.6-4.6); Lymphocytes % 15.8 %; Mean Corpuscular HGB Conc 29.1 g/dL (31.6-35.5); Mean Corpuscular Hemoglobin 20.4 pg (28.0-33.3); Mean Corpuscular Volume 70.1 fL (83.0-100.0); Mean Platelet Volume 10.1 fL (9.4-12.4); Monocytes # 0.4 K/mcL (0.0-1.3); Monocytes % 8.6 %; Neutrophils # 3.6 K/mcL (1.6-8.9); Platelet Count 175 K/mcL (140-400); Red Blood Count 5.01 M/mcL (3.82-4.97); Red Cell Distribution Width 17.2 % (11.5-14.5); Segmented Neutrophils % 74.2 %; White Blood Count 4.9 K/mcL (4.3-11.1)
[2020-10-21 14:24] LABS: INR 1.1; Prothrombin Time 12.5 Seconds (9.4-12.1)
[2020-10-21 14:27] LABS: Activated Partial Thrombo Time 26.5 Seconds (26.0-36.0)
[2020-10-21 14:28] LABS: Calcium 9.3 mg/dL (8.6-10.3); Magnesium 1.9 mg/dL (1.6-2.6); Potassium 4.2 mEq/L (3.5-5.1)
[2020-10-21 14:37] LABS: Troponin I 0.04 ng/mL (< 0.04)
[2020-10-21 14:45] LABS: Thyroid Stimulating Hormone 0.992 mcIU/mL (0.340-5.600)
[2020-10-21] MEDS ORDERED: *HR* Heparin 5,000 UNIT/ML VIAL IVP ONE (15:06)
[2020-10-21] MEDS ORDERED: *HR* Heparin 5,000 UNIT/ML VIAL IVP PRN ×2 (15:06)
[2020-10-21] MEDS ORDERED: Isovue-370 500 ML BOTTLE IVP ONE (15:06)
[2020-10-21] MEDS ORDERED: Heparin 25,000UNIT/250ML 1/2NS 25,000 UNIT/250 ML IV.SOLN IVC SCH ×2 (15:15→15:30)
[2020-10-21] MEDS: DilTIAZem 50 MG/50 ML IV.SOLN IVC SCH ×2 (16:38→23:51)
[2020-10-21] MEDS ORDERED: Ondansetron 4 MG/2 ML VIAL IVP PRN (17:46)
[2020-10-21] MEDS ORDERED: Acetaminophen 325 MG TABLET PO PRN (17:46)
[2020-10-21] MEDS ORDERED: Aspirin 325 MG TABLET PO ONE (17:53)
[2020-10-21] MEDS ORDERED: Perflutren Lipid Microsphere 1.3 ML in 0.9 % Sodium Chloride 8.7 ML IVP PRN (18:00)
[2020-10-21 18:53] LABS: Troponin I 0.06 ng/mL (< 0.04)
[2020-10-21] MEDS ORDERED: DilTIAZem CD (24hr) 120 MG CAP.ER.24H PO ONE (22:09)
[2020-10-21] MEDS: Apixaban 2.5 MG TABLET PO SCH (23:28)
[2020-10-22] MEDS ORDERED: DilTIAZem CD (24hr) 120 MG CAP.ER.24H PO ONE (02:00)
[2020-10-22] MEDS ORDERED: *HR* Metoprolol 5 MG/5 ML VIAL IVP ONE (05:51)
[2020-10-22 06:03] LABS: Hemoglobin 9.8 g/dL (11.5-15.4); Mean Corpuscular HGB Conc 29.7 g/dL (31.6-35.5); Mean Corpuscular Hemoglobin 20.8 pg (28.0-33.3); Mean Corpuscular Volume 69.9 fL (83.0-100.0); Mean Platelet Volume 11.3 fL (9.4-12.4); Platelet Count 214 K/mcL (140-400); Red Blood Count 4.72 M/mcL (3.82-4.97)
[2020-10-22 06:21] LABS: BUN/Creatinine Ratio 23 (6-26); Blood Urea Nitrogen 22 mg/dL (8-23); Calcium 8.9 mg/dL (8.6-10.3); Carbon Dioxide 23 mEq/L (23-29); Chloride 108 mEq/L (98-107); Glucose 84 mg/dL (70-105); Osmolality,Calculated 291 (280-300); Phosphorous 3.7 mg/dL (2.7-4.5); Potassium 3.7 mEq/L (3.5-5.1); Sodium 139 mEq/L (136-145); eGFR For African Americans > 60 (> 60); eGFR For Non-African Americans 56 (> 60)
[2020-10-22] MEDS: DilTIAZem 50 MG/50 ML IV.SOLN IVC SCH (06:44)
[2020-10-22] MEDS: Apixaban 2.5 MG TABLET PO SCH (07:53)
[2020-10-22] MEDS ORDERED: DilTIAZem CD (24hr) 240 MG CAP.ER.24H PO SCH (09:00)
[2020-10-22] MEDS ORDERED: Metoprolol XL (24 HR) Succ 25 MG TAB.ER.24H PO SCH ×2 (09:00)
[2020-10-22] MEDS ORDERED: Furosemide 20 MG TABLET PO SCH (09:00)
[2020-10-22] MEDS ORDERED: Aspirin Enteric Coated 81 MG Tablet PO SCH (09:00)
[2020-10-22 15:59] VITALS: BP 102/55
== END 2020-10-22 18:06 | disposition home or self-care (01) ==
LOC: 2NENU 11:02 → EMEROOARM 11:02 → 2NENU 20:46
PROVIDERS: ADMIT Internal Medicine; ATTEND Internal Medicine

== ENCOUNTER 2020-10-27 08:45 | Observation (INO) ==
[2020-10-27 09:42] LABS: Basophils # 0.1 K/mcL (0.0-0.2); Basophils % 1.1 %; Eosinophils # 0.1 K/mcL (0.0-0.6); Eosinophils % 2.9 %; Hematocrit 33.7 % (35.3-44.9); Hemoglobin 10.3 g/dL (11.5-15.4); Immature Granulocytes % 0.5 % (0-4); Lymphocytes # 1.1 K/mcL (0.6-4.6); Lymphocytes % 24.4 %; Mean Corpuscular HGB Conc 30.6 g/dL (31.6-35.5); Mean Corpuscular Hemoglobin 21.2 pg (28.0-33.3); Mean Corpuscular Volume 69.5 fL (83.0-100.0); Mean Platelet Volume 10.9 fL (9.4-12.4); Monocytes # 0.5 K/mcL (0.0-1.3); Monocytes % 10.8 %; Neutrophils # 2.7 K/mcL (1.6-8.9); Platelet Count 224 K/mcL (140-400); Red Blood Count 4.85 M/mcL (3.82-4.97); Red Cell Distribution Width 17.2 % (11.5-14.5); Segmented Neutrophils % 60.3 %; White Blood Count 4.4 K/mcL (4.3-11.1)
[2020-10-27 09:51] LABS: INR 1.5; Prothrombin Time 17.4 Seconds (9.4-12.1)
[2020-10-27 09:52] LABS: Bilirubin,Urine Negative (Negative); Blood,Urine Negative (Negative); Clarity,Urine Clear (Clear); Color,Urine Light-Yellow (Yellow); Glucose,Urine (UA) Normal (Normal); Hyaline Casts,Urine Many per lpf (None Seen); Ketones,Urine Negative (Negative); Leukocyte Esterase,Urine Small (Negative); Mucus,Urine Few per lpf (None-Few); Nitrite,Urine Negative (Negative); PH,Urine 5.5 pH Units (5.0-8.0); Protein,Urine Negative (Neg-Trace); RBC,Urine 0-3 per hpf (0-3); Renal Epithelial Cells,Urine Few per hpf (None-Few); Specific Gravity,Urine 1.013 (1.010-1.025); Squamous Epithelial Cell,Urine Few per hpf (None-Few); Transitional Epi Cells,Urine Few per hpf (None-Few); Urobilinogen,Urine Normal (Normal)
[2020-10-27 09:53] LABS: Activated Partial Thrombo Time 30.1 Seconds (26.0-36.0)
[2020-10-27 09:57] LABS: Anisocytosis 1+ (Not Present); Hypochromasia Present (Not Present); Platelet Estimate Normal (Normal)
[2020-10-27 10:02] LABS: Calcium 8.9 mg/dL (8.6-10.3); Potassium 3.7 mEq/L (3.5-5.1)
[2020-10-27 10:12] LABS: Troponin I 0.04 ng/mL (< 0.04)
[2020-10-27 10:19] LABS: Thyroid Stimulating Hormone 1.723 mcIU/mL (0.340-5.600)
[2020-10-27] MEDS ORDERED: Naloxone 0.4 MG/ML INJ IVP PRN (13:00)
[2020-10-27] MEDS ORDERED: Acetaminophen 325 MG TABLET PO PRN (13:00)
[2020-10-27] MEDS ORDERED: Ondansetron ODT 4 MG TAB.RAPDIS SL PRN (13:00)
[2020-10-27] MEDS ORDERED: DilTIAZem CD (24hr) 120 MG CAP.ER.24H PO SCH (13:00)
[2020-10-27] MEDS ORDERED: DilTIAZem 50 MG/50 ML IV.SOLN IVC SCH (15:00)
[2020-10-27 18:03] LABS: Magnesium 1.9 mg/dL (1.6-2.6)
[2020-10-27 18:04] LABS: Troponin I 0.03 ng/mL (< 0.04)
[2020-10-27] MEDS: Apixaban 2.5 MG TABLET PO SCH (20:42)
[2020-10-27] MEDS: Metoprolol XL (24 HR) Succ 25 MG TAB.ER.24H PO SCH (20:42)
[2020-10-28 03:33] LABS: Calcium 8.6 mg/dL (8.6-10.3); Magnesium 1.9 mg/dL (1.6-2.6); Potassium 4.1 mEq/L (3.5-5.1)
[2020-10-28 07:39] VITALS: BP 142/85
[2020-10-28] MEDS ORDERED: DilTIAZem CD (24hr) 120 MG CAP.ER.24H PO SCH (09:00)
[2020-10-28] MEDS ORDERED: Furosemide 20 MG TABLET PO SCH (09:00)
[2020-10-28] MEDS ORDERED: Aspirin Enteric Coated 81 MG Tablet PO SCH (09:00)
[2020-10-28] MEDS: Metoprolol XL (24 HR) Succ 25 MG TAB.ER.24H PO SCH (09:08)
[2020-10-28] MEDS: Apixaban 2.5 MG TABLET PO SCH (09:08)
[2020-10-28] MEDS ORDERED: Aspirin 81 MG TAB.CHEW PO ONE (13:07)
== END 2020-10-28 12:15 | disposition home or self-care (01) ==
LOC: 2ANU 08:45 → EMEROOARM 08:45 → 2ANU 14:33
PROVIDERS: ADMIT Internal Medicine; ATTEND Internal Medicine

== ENCOUNTER 2020-11-18 08:13 | Observation (INO) ==
[2020-11-18 08:53] LABS: Basophils # 0.1 K/mcL (0.0-0.2); Basophils % 1.1 %; Eosinophils # 0.2 K/mcL (0.0-0.6); Eosinophils % 3.6 %; Immature Granulocytes % 0.2 % (0-4); Lymphocytes # 1.2 K/mcL (0.6-4.6); Lymphocytes % 26.8 %; Mean Corpuscular HGB Conc 29.4 g/dL (31.6-35.5); Mean Corpuscular Hemoglobin 20.5 pg (28.0-33.3); Mean Corpuscular Volume 69.7 fL (83.0-100.0); Mean Platelet Volume 10.4 fL (9.4-12.4); Monocytes # 0.4 K/mcL (0.0-1.3); Neutrophils # 2.6 K/mcL (1.6-8.9); Platelet Count 203 K/mcL (140-400); Red Blood Count 4.88 M/mcL (3.82-4.97); Red Cell Distribution Width 17.2 % (11.5-14.5); Segmented Neutrophils % 58.3 %; White Blood Count 4.4 K/mcL (4.3-11.1)
[2020-11-18 09:01] LABS: Calcium 9.2 mg/dL (8.6-10.3)
[2020-11-18 09:02] LABS: Troponin I 0.03 ng/mL (< 0.04)
[2020-11-18 09:15] LABS: Activated Partial Thrombo Time 21.8 Seconds (26.0-36.0); INR 1.3; Prothrombin Time 15.4 Seconds (9.4-12.1)
[2020-11-18 09:41] LABS: Anisocytosis 1+ (Not Present); Microcytosis Present (Not Present); Platelet Estimate Normal (Normal); Poikilocytosis 1+ (Not Present); Reactive Lymphocytes Present (Not Present)
[2020-11-18 10:13] LABS: Bilirubin,Urine Negative (Negative); Blood,Urine Negative (Negative); Clarity,Urine Clear (Clear); Color,Urine Colorless (Yellow); Glucose,Urine (UA) Normal (Normal); Ketones,Urine Negative (Negative); Leukocyte Esterase,Urine Negative (Negative); Nitrite,Urine Negative (Negative); PH,Urine 5.5 pH Units (5.0-8.0); Protein,Urine Negative (Neg-Trace); Specific Gravity,Urine 1.009 (1.010-1.025); Urobilinogen,Urine Normal (Normal)
[2020-11-18] MEDS ORDERED: Naloxone 0.4 MG/ML INJ IVP PRN ×2 (13:51→13:53)
[2020-11-18] MEDS ORDERED: Ondansetron 4 MG/2 ML VIAL IVP PRN (13:53)
[2020-11-18] MEDS: Apixaban 2.5 MG TABLET PO SCH (20:16)
[2020-11-19 01:54] LABS: Eosinophils # 0.2 K/mcL (0.0-0.6); Eosinophils % 4.1 %; Hematocrit 28.9 % (35.3-44.9); Hemoglobin 8.6 g/dL (11.5-15.4); Immature Granulocytes % 0.5 % (0-4); Lymphocytes # 1.1 K/mcL (0.6-4.6); Lymphocytes % 28.2 %; Mean Corpuscular HGB Conc 29.8 g/dL (31.6-35.5); Mean Corpuscular Hemoglobin 20.3 pg (28.0-33.3); Mean Corpuscular Volume 68.3 fL (83.0-100.0); Mean Platelet Volume 10.6 fL (9.4-12.4); Monocytes # 0.6 K/mcL (0.0-1.3); Platelet Count 184 K/mcL (140-400); Red Blood Count 4.23 M/mcL (3.82-4.97); Red Cell Distribution Width 17.1 % (11.5-14.5); Segmented Neutrophils % 52.2 %; White Blood Count 3.9 K/mcL (4.3-11.1)
[2020-11-19 02:13] LABS: Albumin 3.7 g/dL (3.5-5.7); Albumin/Globulin Ratio 1.9 (1.1-2.2); Bilirubin,Total 0.6 mg/dL (0.3-1.0); Calcium 8.8 mg/dL (8.6-10.3); Chol/HDL Ratio 1.7 (0-4.9); Potassium 3.9 mEq/L (3.5-5.1); Total Protein 5.7 g/dL (6.4-8.9)
[2020-11-19 02:46] LABS: Hypochromasia Present (Not Present); Microcytosis Present (Not Present); Platelet Estimate Normal (Normal)
[2020-11-19] MEDS: Apixaban 2.5 MG TABLET PO SCH (08:27)
[2020-11-19] MEDS ORDERED: Metoprolol XL (24 HR) Succ 25 MG TAB.ER.24H PO SCH (09:00)
[2020-11-19] MEDS ORDERED: Aspirin Enteric Coated 81 MG Tablet PO SCH (09:00)
[2020-11-19] MEDS ORDERED: DilTIAZem CD (24hr) 240 MG CAP.ER.24H PO SCH (11:15)
[2020-11-19 15:54] VITALS: BP 145/79; PULSE 62; TEMP 98.1; O2SAT 92
== END 2020-11-19 19:04 | disposition home or self-care (01) ==
LOC: 3ANU 08:13 → EMEROOARM 08:13 → SUATTDRO 13:39 → 3ANU 15:04
PROVIDERS: ADMIT Student in an Organized Health Care Education/Training Program; ATTEND General Practice

== ENCOUNTER 2021-02-16 04:23 | Observation (INO) ==
[2021-02-16] MEDS ORDERED: 0.9 % Sodium Chloride 500 ML IV ONE (04:31)
[2021-02-16] MEDS ORDERED: *HR* Metoprolol 5 MG/5 ML VIAL IVP ONE (04:39)
[2021-02-16 05:36] LABS: Hematocrit 39.3 % (35.3-44.9); Hemoglobin 12.4 g/dL (11.5-15.4); Immature Granulocytes % 0.3 % (0-4); Lymphocytes % 23.8 %; Mean Corpuscular HGB Conc 31.6 g/dL (31.6-35.5); Mean Corpuscular Hemoglobin 26.2 pg (28.0-33.3); Mean Corpuscular Volume 83.1 fL (83.0-100.0); Mean Platelet Volume 9.7 fL (9.4-12.4); Monocytes % 11.9 %; Platelet Count 141 K/mcL (140-400); Red Blood Count 4.73 M/mcL (3.82-4.97); Red Cell Distribution Width 17.3 % (11.5-14.5); Segmented Neutrophils % 59.5 %; White Blood Count 2.9 K/mcL (4.3-11.1)
[2021-02-16 05:37] LABS: Basophils % 0.7 %; Eosinophils # 0.1 K/mcL (0.0-0.6); Eosinophils % 3.8 %; Lymphocytes # 0.7 K/mcL (0.6-4.6); Monocytes # 0.3 K/mcL (0.0-1.3); Neutrophils # 1.7 K/mcL (1.6-8.9)
[2021-02-16 05:44] LABS: INR 1.3; Prothrombin Time 14.6 Seconds (9.4-12.1)
[2021-02-16 05:47] LABS: Activated Partial Thrombo Time 35.7 Seconds (26.0-36.0)
[2021-02-16 05:59] LABS: BUN/Creatinine Ratio 23 (6-26); Blood Urea Nitrogen 24 mg/dL (8-23); Calcium 9.3 mg/dL (8.6-10.3); Carbon Dioxide 28 mEq/L (23-29); Chloride 108 mEq/L (98-107); Glucose 92 mg/dL (70-105); Osmolality,Calculated 300 (280-300); Potassium 3.4 mEq/L (3.5-5.1); Sodium 143 mEq/L (136-145); eGFR For African Americans > 60 (> 60); eGFR For Non-African Americans 51 (> 60)
[2021-02-16 06:14] LABS: Troponin I 0.04 ng/mL (< 0.04)
[2021-02-16 06:17] LABS: Thyroid Stimulating Hormone 2.702 mcIU/mL (0.340-5.600)
[2021-02-16 06:35] LABS: Bilirubin,Urine Negative (Negative); Blood,Urine Negative (Negative); Clarity,Urine Clear (Clear); Color,Urine Colorless (Yellow); Glucose,Urine (UA) Normal (Normal); Ketones,Urine Negative (Negative); Leukocyte Esterase,Urine Negative (Negative); Nitrite,Urine Negative (Negative); Protein,Urine Negative (Neg-Trace); Specific Gravity,Urine 1.007 (1.010-1.025); Urobilinogen,Urine Normal (Normal)
[2021-02-16] MEDS ORDERED: Ondansetron ODT 4 MG TAB.RAPDIS SL PRN (08:09)
[2021-02-16] MEDS ORDERED: Mag Hydrox/Al Hydrox/Simeth 30 ML UDC PO PRN (08:09)
[2021-02-16] MEDS ORDERED: Naloxone 0.4 MG/ML INJ IVP PRN (08:09)
[2021-02-16] MEDS ORDERED: Melatonin 3 MG TABLET PO PRN (08:09)
[2021-02-16] MEDS ORDERED: Perflutren Lipid Microsphere 1.3 ML in 0.9 % Sodium Chloride 8.7 ML IVP PRN (08:20)
[2021-02-16] MEDS: Aspirin Enteric Coated 81 MG Tablet PO SCH (08:32)
[2021-02-16] MEDS: Lactobacillus 1 EACH CAP.SPRINK PO SCH (08:32)
[2021-02-16] MEDS: Metoprolol XL (24 HR) Succ 25 MG TAB.ER.24H PO SCH (08:32)
[2021-02-16] MEDS: DilTIAZem CD (24hr) 240 MG CAP.ER.24H PO SCH (08:33)
[2021-02-16] MEDS: Apixaban 2.5 MG TABLET PO SCH ×2 (08:52→20:53)
[2021-02-16] MEDS: amLODIPine 5 MG TABLET PO SCH (14:27)
[2021-02-16] MEDS ORDERED: *HR* Labetalol 20 MG/4 ML SYRINGE IVP ONE (22:10)
[2021-02-17] MEDS ORDERED: Acetaminophen 325 MG TABLET PO PRN (03:20)
[2021-02-17] MEDS ORDERED: *HR* Labetalol 20 MG/4 ML SYRINGE IVP ONE (05:08)
[2021-02-17 05:21] LABS: Hematocrit 37.5 % (35.3-44.9); Hemoglobin 12.3 g/dL (11.5-15.4); Mean Corpuscular HGB Conc 32.8 g/dL (31.6-35.5); Mean Corpuscular Hemoglobin 26.9 pg (28.0-33.3); Mean Corpuscular Volume 81.9 fL (83.0-100.0); Mean Platelet Volume 9.6 fL (9.4-12.4); Platelet Count 157 K/mcL (140-400); Red Blood Count 4.58 M/mcL (3.82-4.97); Red Cell Distribution Width 17.2 % (11.5-14.5)
[2021-02-17 05:22] LABS: White Blood Count 4.9 K/mcL (4.3-11.1)
[2021-02-17 05:47] LABS: BUN/Creatinine Ratio 24 (6-26); Blood Urea Nitrogen 21 mg/dL (8-23); Calcium 8.9 mg/dL (8.6-10.3); Carbon Dioxide 24 mEq/L (23-29); Chloride 107 mEq/L (98-107); Glucose 101 mg/dL (70-105); Osmolality,Calculated 295 (280-300); Potassium 3.4 mEq/L (3.5-5.1); Sodium 141 mEq/L (136-145); eGFR For African Americans > 60 (> 60); eGFR For Non-African Americans > 60 (> 60)
[2021-02-17] MEDS: Aspirin Enteric Coated 81 MG Tablet PO SCH (09:31)
[2021-02-17] MEDS: Apixaban 2.5 MG TABLET PO SCH (09:31)
[2021-02-17] MEDS: amLODIPine 5 MG TABLET PO SCH (09:31)
[2021-02-17] MEDS: DilTIAZem CD (24hr) 240 MG CAP.ER.24H PO SCH (09:32)
[2021-02-17] MEDS: Metoprolol XL (24 HR) Succ 25 MG TAB.ER.24H PO SCH (09:32)
[2021-02-17] MEDS: Lactobacillus 1 EACH CAP.SPRINK PO SCH (09:32)
[2021-02-17 11:19] VITALS: BP 149/66; PULSE 68; TEMP 97.7; O2SAT 99
== END 2021-02-17 14:50 | disposition home or self-care (01) ==
LOC: SUATTDRO → EMEROOARM 04:23 → 3BNU 04:23 → SUATTDRO 13:28 → 3BNU 15:05
PROVIDERS: ADMIT Family Medicine; ATTEND Pharmacist